=== PATIENT | female | born 1950 | race Caucasian/White ===

== ENCOUNTER → 2016-05-13 | Outpatient (CLI) | payer MEDICARE, OTHER ==
--- NOTE | 2016-05-13 17:17 | ECHO ---
DATE OF PROCEDURE: 05/13/2016 REFERRING PHYSICIAN: Hallie Chavis INDICATION: Chemotherapy on an outpatient basis. HEIGHT: 160 cm WEIGHT: 66 kg DIMENSIONS: IVS: 0.9 LV: 4.4 LVPW: 0.9 LA: 3.3 Aorta: 3.0 FINDINGS: Study was of good technical quality. Of note, the patient was quite tachycardic, sinus tachycardia with heart rate fluctuating between 105 and 120 beats per minute. Left ventricle is of normal size and systolic function with estimated ejection fraction (EF) around 65%. Right ventricle is also normal size and systolic function. Both atria appear normal. Left atrial volume index was 24 mm per meter square. Aortic valve is minimally sclerotic but has normal mobility. Mitral tricuspid valve appear normal. Pulmonic valve was not well visualized. No pericardial effusion is noted. Inferior vena cava is normal size. Aortic root and aortic arch appear normal. Abdominal aorta was not well seen. Doppler interrogation reveals no aortic stenosis and trivial aortic insufficiency. There is also trace mitral insufficiency and trace tricuspid insufficiency. Calculated pulmonary artery pressure is around 30 which would be borderline for mild pulmonary hypertension. Mitral inflow pattern and tissue Doppler imaging of mitral annulus reveal summation pattern on mitral inflow, but tissue Doppler velocity are normal (E prime septal is 13.7, E prime lateral 10.2 cm/sec). And consequently I assume there is normal diastolic function. CONCLUSIONS: 1. Study is of acceptable technical quality. 2. Normal left ventricle (LV) size, systolic and diastolic function. 3. No hemodynamically significant valvular disease. 4. Normal central venous pressure. 5. Normal mildly elevated pulmonary artery pressure. COMMENT: Subacute bacterial endocarditis (SBE) prophylaxis is not recommended. Of note, the patient was tachycardic during the study. [facility]
== END ==
LOC: M CARPUL 09:14
PROVIDERS: ATTEND Internal Medicine Medical Oncology
DX: C50.919 Malignant neoplasm of unspecified site of unspecified female breast (principal); Z79.899 Other long term (current) drug therapy

== ENCOUNTER → 2016-06-09 | Outpatient (CLI) | payer MEDICARE, OTHER ==
--- NOTE | 2016-06-10 08:31 | RADONC ---
RADIATION ONCOLOGY CONSULTATION NOTE: DATE: 06/09/2016 CHART NO: [id number] DIAGNOSIS: Right breast cancer. STAGE: Stage III A, T3N1M0 DIAGNOSIS Left breast cancer. STAGE: II B, T2N1M0 ECOG PERFORMANCE STATUS: 0. Ms. 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 HISTORY OF PRESENT ILLNESS: The patient was in the usual state of health until the fall when she noticed some dimpling over her right breast. She was found, at that time, to have bilateral breast masses and on December 05, 2015, underwent bilateral mastectomies, sentinel lymph node biopsies and bilateral axillary dissections. On the right side, the patient was found to have a 6.4 cm poorly differentiated infiltrating ductal carcinoma. The deep margin of resection was positive for malignancy which went into the pectoralis muscle. A total of 19 lymph nodes were sampled of which two were positive. The largest lymph node measured 3 cm. Extranodal extension was seen. On the left side, a 4.1 cm poorly differentiated infiltrating ductal carcinoma was found. The closest margin of resection was 6 mm. A total of two axillary lymph nodes on the left side were found to have metastatic disease; One measuring 5 mm and the other with metastatic disease measuring 2.5 mm. There was no extracapsular extension noted. An additional 13 lymph nodes for a total of 15 lymph nodes were removed from the left axilla. Following bilateral mastectomy the patient underwent systemic therapy with docetaxel/carboplatin /trastuzumab/pertuzumab (TCHP) every 21 days. Her last scheduled chemotherapy is for June 11, 2016. She is now presenting for discussion of postoperative radiation therapy at least to the right chest wall. PAST MEDICAL HISTORY: The patient's past medical history is positive for arthritis in her knees. She had a tonsillectomy as a child. ALLERGIES: The patient has no known drug allergies. SOCIAL HISTORY: The patient does not smoke cigarettes nor abuse alcohol. FAMILY HISTORY: The patient's family history is negative for breast cancer or other malignancies. REVIEW OF SYSTEMS: The patient's review of systems is positive for her physical limitations secondary to arthritis in her knees. She also has had some anorexia and weight loss since chemotherapy. She denies nausea, vomiting, fevers, chills, night sweats, diplopia, headaches, anxiety or depression, anorexia, weight loss, visual disturbances, chest pain, urinary or bowel difficulties, bone pain, or neurological problems. PHYSICAL EXAMINATION: The patient is a well-developed, well-nourished female in no acute distress. HEENT exam is normocephalic, atraumatic. Extraocular movements are intact. There is no palpable cervical, supraclavicular, infraclavicular, axillary, or inguinal lymphadenopathy present. Lungs are clear to auscultation and percussion. Heart has a regular rate and rhythm. Abdomen is benign with no hepatosplenomegaly, masses, or tenderness. Breast examination: The bilateral chest seo reveal no evidence of nodularity, ulceration or residual disease. Skeletal examination reveals no tenderness to pressure or percussion of the bony skeleton. Extremities reveal no clubbing, cyanosis, or edema. Neurologic exam is grossly intact, as is the remainder of the physical examination. ASSESSMENT: I had a very lengthy discussion with this patient and we discussed the NCCN guidelines for various treatment options. I discussed in detail the potential benefits as well as possible acute and chronic sequelae of external beam radiation therapy. We discussed logistics of treatment planning, simulation and subsequent fractionated daily radiation treatments. Clearly, with regards to the patient's right chest wall and axilla there is a clear indication for postoperative radiation therapy. Not only was the size of her lesion 6.4 cm, there was also involvement of the pectoralis muscle and a clearly positive margin of resection for that chest wall. In addition, metastatic lymph nodes on the right side measured up to 3 cm and there was clear evidence of extranodal extension as well. Therefore, clearly she is a candidate for postoperative radiation therapy to the right chest wall and supraclavicular lymph node drainage sites. I discussed in detail the indications for this , the reasoning and logic behind it, as well as the logistics of treatment planning, simulation and subsequent fractionated daily radiation treatments. I initially explained to the patient that I do not feel strongly about any postoperative radiation therapy to her left chest wall. The tumor in that case was only 4.1 cm and all margins of resection were negative. There were, however , two positive lymph nodes present and although small, they were present. A total of 13 further axillary lymph node showed no evidence of malignancy. When reviewing the NCCN most recent guidelines, however, it was noted that in patients with one to three positive axillary nodes, they recommend strongly consideration of radiation to the chest wall, infraclavicular region, supraclavicular region and perhaps even the internal mammary nodes. I have placed the patient on our discussion for multidisciplinary tumor conference to discuss this issue. In addition, we will be setting her up for CT simulation in treatment position for the right side and at the same time, the CT will be undertaken for treatment planning for the left side. We can, at that time, determine whether or not radiation would increase the risk of any heart issues. There is also an increased risk of lymphedema since 15 lymph nodes have already been removed from the left side. Considering that these were millimeter-sized lymph nodes and the tumor was largely removed, I think the data is less strong for radiation to the left side. Once again I think it is an option and we will further pursue this. In summary, we are setting the patient up for initiation of treatment planning for her right chest wall and lymph nodes drainage areas. There is clear and unequivocal indication for treatment of that side. At the same time, we will undergo planning to see whether or not the left side has significant morbidity especially with regards to the patient's heart. I have once again, as mentioned above, placed her for multidisciplinary tumor conference and we will discuss this further. Final recommendations will be made to her pending discussion at tumor conference. Once again that discussion will also need to further clarify any risks of treating the left side. As noted above, this patient has significant amount of disease and I think the likelihood of recurrence of the left chest wall is much less than on the right. Thank you for allowing us to participate in the care of this very pleasant woman. I will keep you informed as any discussion changes as they occur. As always warm regards, cc: Hallie Chavis MD *Nickie Church DO *MD CODY Parker
== END ==
LOC: M ONCR 08:38
PROVIDERS: ATTEND Radiology Radiation Oncology
DX: C50.919 Malignant neoplasm of unspecified site of unspecified female breast (principal); Z79.899 Other long term (current) drug therapy

== ENCOUNTER 2016-06-22 13:56 | Outpatient (RCR) | payer MEDICARE, OTHER ==
--- NOTE | 2016-06-22 15:25 | RADONC ---
RADIATION ONCOLOGY SIMULATION NOTE DATE: 06/22/2016 CHART NUMBER: Ms. Vernon was taken to the CT scan for CT simulation of her right breast field and supraclavicular region. As we were simulating that we also simulated the left chest wall field. The patient is concerned and wishes us to consider radiation to the left chest wall and axilla as well. CT was accomplished without difficulty or discomfort. We placed markers so that one or both chest seo could be treated. An immobilization device was created without difficulty or discomfort and will be used throughout the course of treatment. I was physically present throughout the course of CT simulation.
--- NOTE | 2016-07-06 12:05 | RADONC ---
RADIATION ONCOLOGY PROGRESS NOTE DATE: 07/06/2016 CHART NUMBER: Ms. Vernon was scheduled to initiate radiation today. She came in with many questions regarding treatment of the left side. We sat and spoke with her for well over 20 minutes or so discussing the pluses and minuses of treating that side. We did run a treatment plan and were able to come off the heart and minimize the dose to the axillary region. I did make clear to her that in light of the fact that there only two positive lymph nodes, one measuring 2.5 mm in the other measuring 5 mm that I did not think radiation was strongly indicated. I reiterated that we presented this at our multidisciplinary tumor conference and they agreed that it may be rogers to withhold radiation to the left side at this point. In addition, the patient was seen by Dr. Pedroza, her surgeon, who also agreed that radiation on the left side is not strongly indicated, but optional. I printed out once again the guidelines of the NCCN and at the end of our discussion, the patient decided to wait on radiation. We have already run a plan and simulated her for bilateral treatments. Once again, we are planning on starting the right side today and indeed may only treat the right side. I have made clear to the patient that it depends on her anxiety level. The plan shows minimal dose to the heart and should be tolerated if she so chooses. Once again, I do not believe radiation to the left side is strongly indicated. I think she should do fine without it, and therefore, I agree with Dr. Pedroza, as well as with the recommendations from our multidisciplinary tumor conference.
--- NOTE | 2016-07-13 11:24 | RADONC ---
RADIATION ONCOLOGY PROGRESS NOTE DATE: 07/13/2016 CHART NUMBER: [id number] Ms. Vernon is presently at a dose of 1080 cGy to her right chest wall and supraclavicular region and is tolerating treatments quite well at this point with no complaints related to her radiation therapy. She is having no breast or bone pain. The patient's review of systems is noncontributory. She denies nausea, vomiting, fevers, chills, night sweats, diplopia, headaches, anxiety or depression, anorexia, weight loss, visual disturbances, chest pain, urinary or bowel difficulties, bone pain, or neurological problems. PHYSICAL EXAMINATION: The patient's skin is in good condition with no evidence of moist or dry desquamation. The remainder of physical exam remains unchanged. Ms. Vernon is tolerating treatments quite well and radiation will continue as scheduled.
--- NOTE | 2016-07-21 10:46 | RADONC ---
RADIATION ONCOLOGY PROGRESS NOTE: DATE: 07/21/2016 CHART NO: Ms. Vernon is presently at a dose of 1980 cGy to her left chest wall and is tolerating treatments quite well at this point with no complaints related to her radiation therapy. She is having no significant skin pain or other problems. REVIEW OF SYSTEMS: The patient's review of systems is noncontributory. She denies nausea, vomiting, fevers, chills, night sweats, diplopia, headaches, anxiety or depression, anorexia, weight loss, visual disturbances, chest pain, urinary or bowel difficulties, bone pain, or neurological problems. PHYSICAL EXAMINATION: The patient's skin is in excellent condition with no evidence of radiation change present. There is no moist or dry desquamation. The remainder of her physical exam remains unchanged. Ms. Vernon is tolerating treatments quite well and radiation will continue as scheduled.
== END 2016-07-22 ==
LOC: M ONCR 13:56
PROVIDERS: ATTEND Radiology Radiation Oncology
DX: C50.111 Malignant neoplasm of central portion of right female breast (principal); C50.811 Malignant neoplasm of overlapping sites of right female breast

== ENCOUNTER → 2016-06-22 | Outpatient (CLI) | payer MEDICARE, OTHER | LOC: M RAD 13:45 | PROVIDERS: ATTEND Radiology Radiation Oncology | DX: C50.111 Malignant neoplasm of central portion of right female breast (principal); C50.811 Malignant neoplasm of overlapping sites of right female breast ==

== ENCOUNTER 2016-07-23 11:00 | Outpatient (RCR) | payer MEDICARE, OTHER ==
--- NOTE | 2016-07-28 13:42 | RADONC ---
RADIATION ONCOLOGY PROGRESS NOTE: DATE: 07/28/2016 CHART NO: [id number] Ms. Vernon is presently at a dose of 2880 cGy to her right chest wall and is tolerating treatments quite well at this point with no complaints related to her radiation therapy. She has no skin discomfort or other problems. REVIEW OF SYSTEMS: The patient's review of systems is noncontributory. Denies nausea, vomiting, fevers, chills, night sweats, diplopia, headaches, anxiety or depression, anorexia, weight loss, visual disturbances, chest pain, urinary or bowel difficulties, bone pain, or neurological problems. PHYSICAL EXAMINATION: The patient's skin is in good condition with just some erythema present. There is no moist or dry desquamation. The remainder of her physical exam remains unchanged. Ms. Vernon is tolerating treatments quite well and radiation will continue as scheduled.
--- NOTE | 2016-08-03 11:37 | RADONC ---
RADIATION ONCOLOGY PROGRESS NOTE: DATE: 08/03/2016 CHART NUMBER: [id number]. PROGRESS NOTE: Ms. Vernon is presently a dose of 3600 cGy to her left chest wall and is tolerating treatments quite well at this point with no complaints related to her radiation therapy. She has no chest wall or other discomforts. REVIEW OF SYSTEMS: The patient's review of systems is noncontributory. Denies nausea, vomiting, fevers, chills, night sweats, diplopia, headaches, anxiety or depression, anorexia, weight loss, visual disturbances, chest pain, urinary or bowel difficulties, bone pain, or neurological problems. PHYSICAL EXAMINATION: The patient's skin is in good condition with no evidence of moist or dry desquamation. The remainder of her physical exam remains unchanged. Ms. Vernon is tolerating treatments quite well and radiation will continue as scheduled.
[2016-08-10] MEDS ORDERED: SILV-4 TOP (10:10)
--- NOTE | 2016-08-10 15:01 | RADONC ---
RADIATION ONCOLOGY DATE: 08/10/2016 CHART NUMBER: [id number] Ms. Vernon is presently at a dose of 4320 cGy to her left chest wall and is tolerating treatments quite well at this point with no significant difficulties related to her radiation therapy other than some skin tenderness. REVIEW OF SYSTEMS: The patient's review of systems is positive for some skin tenderness but is otherwise noncontributory. She denies nausea, vomiting, fevers, chills, night sweats, diplopia, headaches, anxiety or depression, anorexia, weight loss, visual disturbances, chest pain, urinary or bowel difficulties, bone pain, or neurological problems. PHYSICAL EXAMINATION: The patient's skin shows some erythema and tanning present but there is no evidence of moist or dry desquamation. The remained of the physical exam remains unchanged. ASSESSMENT: The patient is clinically doing quite well at this point and radiation will continue as scheduled. I have given the patient a prescription for some Silvadene to be applied topically. MTDD
--- NOTE | 2016-08-11 10:33 | RADONC ---
RADIATION ONCOLOGY SIMULATION NOTE: DATE: 08/11/2016 CHART NUMBER: [id number]. SIMULATION NOTE: Ms. Vernon was taken to the linear accelerator today for clinical setup of her right scar electron boost. Setup was accomplished without difficulty or discomfort. Radiation treatment planning is underway and radiation treatments will begin subsequently. An immobilization device was created and will be used throughout the course of treatment. I was physically present throughout the course of CT simulation.
--- NOTE | 2016-08-17 12:15 | RADONC ---
RADIATION ONCOLOGY PROGRESS NOTE: DATE: 08/17/2016 CHART NUMBER: [id number]. PROGRESS NOTE: Ms. Vernon is presently a dose of 5220 cGy to her coned-down boost and is tolerating treatments quite well at this point with no significant difficulties related to her radiation therapy other than a brisk skin reaction. She is having no other pain or discomfort. REVIEW OF SYSTEMS: The patient's review of systems is positive for some skin, chest wall pain but is otherwise noncontributory. Denies nausea, vomiting, fevers, chills, night sweats, diplopia, headaches, anxiety or depression, anorexia, weight loss, visual disturbances, chest pain, urinary or bowel difficulties, bone pain, or neurological problems. PHYSICAL EXAMINATION: The patient's skin shows moist and dry desquamation as well as tanning and erythema. The remainder of physical exam remains unchanged. Ms. Vernon is tolerating treatments well. The areas of desquamation are not in the presently treated coned-down sections so radiation will continue as scheduled.
--- NOTE | 2016-08-21 11:24 | RADONC ---
RADIATION ONCOLOGY TREATMENT SUMMARY: DATE: 08/21/2016 CHART NUMBER: [id number] DIAGNOSIS: Right breast cancer. STAGE: III A, T3N1M0 DIAGNOSIS: Left breast cancer. STAGE: II B, T2N1M0 ECOG PERFORMANCE STATUS: 0 Ms. 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 We treated the patient to the right chest wall and supraclavicular regions for a dose of 5040 cGy delivered in 28 fractions of 180 cGy each over 39 elapsed days from 07/06/2016 through 08/14/2016. The patient's right chest wall and lymph node drainage sites were treated on the linear accelerator utilizing a combination of 6X and 18X photon beams. The right chest wall was treated utilizing medial and lateral tangential islas. 0.5 cm of tissue equivalent bolus was placed over the field. The right supraclavicular region and axillary area was treated using a combination of left anterior oblique and posterior islas again using a combination of 6X 18X photons. Following completion of 5040 cGy to the entire right chest wall, the scar was boosted for an additional 900 cGy delivered in five fractions of 180 cGy each from 2016 through 08/21/2016. The scar boost was treated on the linear accelerator utilizing a 9 MEV electron beam prescribed to the 90% isodose line via an en face technique. This brought the surgical scar area to dose of 5940 cGy delivered in 33 fractions over 46 elapsed days from 07/06/2016 through 08/21/2016. Ms. Vernon tolerated her treatments quite well and was able complete therapy as prescribed without interruption. I have scheduled the patient see me again in 1 month for further followup. She will also continue be followed by her other physicians as well. cc: MD Nickie Beverly DO Joel Yellin, MD MTDD
== END 2016-08-21 ==
LOC: M ONCR 11:00
PROVIDERS: ATTEND Radiology Radiation Oncology
DX: C50.112 Malignant neoplasm of central portion of left female breast (principal); C50.111 Malignant neoplasm of central portion of right female breast

== ENCOUNTER → 2016-07-28 | Outpatient (CLI) | payer MEDICARE, OTHER ==
--- NOTE | 2016-07-28 23:03 | ECHO ---
DATE OF PROCEDURE: 07/28/2016 AGE: 66 GENDER: Female HEIGHT: 63 inches WEIGHT: 137 pounds BODY SURFACE AREA: 1.65 m2 PATIENT LOCATION: Outpatient REFERRING PHYSICIAN: Leyla Travis NP INDICATION: Potentially cardiotoxic chemotherapy. 2-D MEASUREMENTS: RV: 3.3 cm LV: 3.6 cm Septum: 1.0 cm Posterior wall: 1.0 cm Aortic root: 2.9 cm LA: 3.4 cm LVEF: 65% DOPPLER MEASUREMENTS AV: 1.5 m/s LVOT: 1.2 m/s LVOT diameter: 1.5 cm MV-E: 81, A: 100, EA ratio: 0.8 Early mitral deceleration time: 180 ms E prime: 8, A prime: 8, EE prime ratio: 10 PV: 0.8 m/s Pulmonary artery acceleration time: 106 ms RVSP: 27-31 mmHg IVC: 1.2 cm COMMENTS: Normal sinus rhythm without intraventricular conduction disturbance. Normal cardiac chamber sizes and wall thickness. On real-time imaging from the parasternal and apical projections wall motion was symmetrical and normal to hyperkinetic. Slightly thickened mitral annulus with normal leaflet thickness and excursion with no posterior systolic buckling. Three equal sized aortic cusps with marginally thickened cusp edges but adequate cusp separation. Normal aortic root size. No apparent intracardiac mass or pericardial effusion. Color flow Doppler study taken from the parasternal and apical projections showed very mild mitral and aortic insufficiency with mild tricuspid insufficiency. Guided continuous wave Doppler of her aortic valve showed a normal peak systolic velocity against LV outflow tract obstruction. Pulsed and continuous wave Doppler of her LV inflow tract taken from the apical four-chamber projection showed normal diastolic filling velocities against mitral stenosis. There was a slightly more prominent late diastolic/atrial dependent filling pattern but no other signs of LV diastolic dysfunction and estimated mean left atrial pressure was within normal limits. Pulsed and continuous wave Doppler of her pulmonary trunk showed a normal peak systolic velocity against RV outflow tract obstruction. Pulmonary artery acceleration time was marginally abbreviated suggestive a borderline increased pulmonary vascular resistance. Guided continuous wave Doppler of her tricuspid valve allowed our further estimation of her right ventricular systolic pressure (upper limits of normal to borderline increased). Normal IVC size and collapse against an elevated central venous pressure. CONCLUSIONS: Normal left ventricular size, wall thickness and wall motion. Normal left atrial size with Doppler evidence of a degree of impaired LV diastolic function in keeping with her age. Normal right heart chamber sizes and wall motion with borderline pulmonary hypertension. Normal IVC size and collapse against an elevated central venous pressure. Subtle aortic valvular sclerosis without stenosis and very mild insufficiency. Subtle mitral annular calcification with very mild insufficiency. Comparing the above test findings with prior study May 13, 2016 there did not appear to be a significant change.
== END ==
LOC: M CARPUL 10:10
PROVIDERS: ATTEND Nurse Practitioner Family
DX: C50.919 Malignant neoplasm of unspecified site of unspecified female breast (principal); Z79.899 Other long term (current) drug therapy

== ENCOUNTER → 2016-09-03 | Outpatient (CLI) | payer MEDICARE, OTHER ==
[~2016-09-03] MED LIST: SILV-4 TOP
--- NOTE | 2016-09-09 09:49 | DEXA ---
AP SPINE L1 - L4 0.853 -2.8 -1.1 LT FEMUR TOTAL 0.692 -2.5 -1.2 RT FEMUR TOTAL Unsure of ESTHER placement. TOTAL BODY TOTAL OTHER DUAL FEMUR FRAX* ASSESSMENT Risk factors: History of adult fracture. 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 FOLLOW-UP: Recommendation for the next bone density exam: 2 years. [facility]
== END ==
LOC: M WHC 12:50
PROVIDERS: ATTEND Internal Medicine Medical Oncology
DX: M81.0 Age-related osteoporosis without current pathological fracture (principal)

== ENCOUNTER → 2016-09-23 | Outpatient (CLI) | payer MEDICARE, OTHER ==
--- NOTE | 2016-09-23 10:49 | RADONC ---
RADIATION ONCOLOGY FOLLOWUP NOTE: DATE: 09/23/2016 CHART NUMBER: [id number]. DIAGNOSIS: Right breast cancer. STAGE: IIIA, T3N1M0 DIAGNOSIS: Left breast cancer. STAGE: IIB, T2N1M0. ECOG PERFORMANCE STATUS: Zero. FOLLOWUP NOTE: Ms. 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 The patient presents today reporting that she is doing quite well with no complaints at this time related to her radiation therapy or disease. She has no chest wall or bone pain. REVIEW OF SYSTEMS: The patient's review of systems is noncontributory. Denies nausea, vomiting, fevers, chills, night sweats, diplopia, headaches, anxiety or depression, anorexia, weight loss, visual disturbances, chest pain, urinary or bowel difficulties, bone pain, or neurological problems. PHYSICAL EXAMINATION: The patient is a well-developed, well-nourished, white female, in no acute distress. HEENT exam is normocephalic, atraumatic. Extraocular movements are intact. There is no palpable cervical, supraclavicular, infraclavicular, axillary, or inguinal lymphadenopathy present. Lungs are clear to auscultation and percussion. Heart has a regular rate and rhythm. Abdomen is benign with no hepatosplenomegaly, masses, or tenderness. Breast examination reveals The patient's bilateral chest seo reveal well- healed mastectomy scars present. There is no nodularity, ulceration or evidence of residual or recurrent disease present. Skeletal examination reveals no tenderness to pressure or percussion of the bony skeleton. Extremities reveal no clubbing, cyanosis, or edema. Neurologic exam is grossly intact, as is the remainder of the physical examination. ASSESSMENT: The patient is clinically doing well at this point. She is undergoing Herceptin treatment and will be seen by Dr. Chavis routinely over the next several months. She is also going to continue her followup with Dr. Pedroza. In light of this close followup and management at this time, I have discharged her from our followup except on an as needed basis. Of note, once again, the patient is questioned whether or not she should reconsider radiation to the left breast. She is asked that question almost on a daily basis throughout the course of treatment. We had simulated the patient to the left breast and I had given her this option throughout her treatment course. Again she brought this up routinely. I routinely gave her the option and explained the potential benefits as well as risks to her. At this time, we are now significantly post surgery. Once again, I made clear she had had the option to treat that breast at anytime. At this point, however , I do not foresee it being of any benefit. Once again, I explained to her in detail the risks of radiation to that side and the small likelihood of any real benefit. cc: MD Nickie Beverly DO Joel Yellin, MD MTDD
== END ==
LOC: M ONCR 10:04
PROVIDERS: ATTEND Radiology Radiation Oncology
DX: C50.911 Malignant neoplasm of unspecified site of right female breast (principal); C50.912 Malignant neoplasm of unspecified site of left female breast

== ENCOUNTER → 2016-10-27 | Outpatient (CLI) | payer MEDICARE, OTHER ==
--- NOTE | 2016-10-27 20:47 | ECHO ---
DATE OF PROCEDURE: 10/27/2016 REFERRING PHYSICIAN: Dr. Hallie Chavis Study was performed on 10/27/2016 on an outpatient basis for indication chemotherapy. The patient measures 160 cm and weighs 61 kg. DIMENSIONS: IVS: 0.9 LV: 3.3 LVPW: 0.9 LA: 2.8 Aorta: 2.9 FINDINGS: The study is of fair technical quality. Left ventricle is normal size and systolic function with estimated left ventricular ejection fraction (LVEF) 65-70%. Right ventricle also appears normal. Both atria appear normal. All four cardiac valves were reasonably well seen and appear normal. No pericardial effusion is present. Inferior vena cava was not visualized. Aortic root and aortic arch appear normal. Abdominal aorta was not seen. Doppler interrogation reveals no aortic stenosis and trivial insufficiency. There is trace mitral insufficiency and trace tricuspid insufficiency. Calculated pulmonary artery pressure is within normal limits. Pulmonic valve is functionally competent. Mitral inflow pattern and tissue Doppler imaging of mitral annulus reveal grade 1 diastolic dysfunction (E prime velocity of septal and lateral mitral annulus are 7.1 and 10.2 cm/s respectively). CONCLUSIONS: 1. The study is of fair technical quality. 2. Normal left ventricular (LV) size with normal LV systolic function and grade 1 diastolic dysfunction. 3. No significant valvular disease. 4. Unable to estimate central venous pressure but likely normal pulmonary artery pressure. COMMENTS: Subacute bacterial endocarditis (SBE) prophylaxis is not recommended.
== END ==
LOC: M CARPUL 09:22
PROVIDERS: ATTEND Internal Medicine Medical Oncology
DX: C50.919 Malignant neoplasm of unspecified site of unspecified female breast (principal); Z79.899 Other long term (current) drug therapy

== ENCOUNTER → 2016-11-26 | Outpatient (REF) | payer MEDICARE, OTHER ==
[2016-11-26 14:53] LABS: FREE T4 1.26 NG/DL (0.76-1.46)
== END ==
LOC: M LAB REF 12:44
PROVIDERS: ATTEND Physician Assistant
DX: Z00.00 Encounter for general adult medical examination without abnormal findings (principal); Z13.29 Encounter for screening for other suspected endocrine disorder; Z13.220 Encounter for screening for lipoid disorders; Z79.899 Other long term (current) drug therapy

== ENCOUNTER → 2017-02-05 | Outpatient (CLI) | payer MEDICARE, OTHER ==
--- NOTE | 2017-02-08 13:26 | ECHO ---
DATE OF STUDY: 02/05/2017 REFERRING PHYSICIAN: Hallie Chavis MD INDICATION: Chemotherapy drugs that may affect the heart. HEIGHT: 100 cm WEIGHT: 61 kg 2D MEASUREMENTS: Aortic annulus 1.7 cm Left atrium 3.3 cm Septum 0.67 cm Posterior wall 0.82 cm Left ventricle diastole 3.6 cm Inferior vena cava 1.4 cm DOPPLER MEASUREMENTS: Mild aortic regurgitation. Aortic valve velocity - 143 cm/s LVOT velocity - 112 cm/s LVOT VTI - 21.6 cm Very mild mitral regurgitation Mitral E velocity - 78.0 cm/s Mitral A velocity - 94.3 cm/s Mitral deceleration time - 201 ms Mild tricuspid regurgitation Estimated right ventricle systolic pressure 30 mmHg assuming an right atrial pressure of 5 mmHg MITRAL ANNULAR TISSUE DOPPLER: E-prime septal - 8.2 cm/s A-prime septal - 9.9 cm/s DESCRIPTION: Rhythm was sinus. Image quality was fair. No pericardial effusion. This was a 2D, M mode, color flow Doppler and pulse wave Doppler examination and included mitral annular calcification tissue Doppler. CONCLUSIONS: 1. Normal left ventricle internal dimensions and wall thickness. Normal regional LV wall motion and wall thickening. Normal LV systolic function. LVEF 70% by visual estimate. Normal LV diastolic function. 2. No pericardial effusion. 3. Mild aortic valve sclerosis on a three-cusp aortic valve. Mild aortic regurgitation. 4. Mild mitral annular calcification. Very mild mitral regurgitation. 5. Otherwise, normal appearing echocardiogram Doppler findings. MTDD
== END ==
LOC: M CARPUL 10:01
PROVIDERS: ATTEND Internal Medicine Medical Oncology
DX: C50.919 Malignant neoplasm of unspecified site of unspecified female breast (principal); Z79.899 Other long term (current) drug therapy

== ENCOUNTER → 2017-10-13 | Outpatient (REF) | payer MEDICARE, OTHER ==
[2017-10-13 11:16] LABS: ALBUMIN 3.5 GM/DL (3.2-5.2); ALBUMIN/GLOBULIN RATIO 0.97 (1.00-1.93); ALKALINE PHOSPHATASE 76 U/L (45-117); ALT/SGPT 29 U/L (12-78); ANION GAP 8 MEQ/L (8-16); AST/SGOT 14 U/L (7-37); BILIRUBIN,TOTAL 0.4 MG/DL (0.2-1.0); BLOOD UREA NITROGEN 18 MG/DL (7-18); CALCIUM LEVEL 9.4 MG/DL (8.8-10.2); CARBON DIOXIDE LEVEL 27 MEQ/L (21-32); CHLORIDE LEVEL 109 MEQ/L (98-107); CREATININE FOR GFR 0.82 MG/DL (0.55-1.30); GLOMERULAR FILTRATION RATE > 60.0 (>45); GLUCOSE, FASTING 132 MG/DL (70-100); SODIUM LEVEL 144 MEQ/L (136-145); TOTAL PROTEIN 7.1 GM/DL (6.4-8.2)
== END ==
LOC: M LAB REF 10:51
DX: C50.111 Malignant neoplasm of central portion of right female breast (principal); Z17.0 Estrogen receptor positive status [ER+]; Z90.11 Acquired absence of right breast and nipple; C50.112 Malignant neoplasm of central portion of left female breast; Z90.12 Acquired absence of left breast and nipple
CPT/HCPCS: 80053

== ENCOUNTER → 2018-08-30 | Outpatient (CLI) | payer MEDICARE, OTHER ==
[~2018-08-30] MED LIST changes: +CEPH500C PO; +DOXY-350 PO; +EXEM25TA PO; +IMOD2TAB16 PO; +NERL40TA PO; +[UNRECOGNIZED DRUG - CODE] PO
[2018-08-30 18:45] LABS: RHEUMATOID FACTOR QUANT < 10.0 IU/ML (<15.0)
[2018-08-30 18:49] LABS: BASO # 0.1 10^3/uL (0.0-0.2); BASO % 0.9 % (0.0-1.0); EOS # 0.1 10^3/uL (0.0-0.50); EOS % 0.8 % (0.0-3.0); HEMATOCRIT 39.1 % (36.0-47.0); HEMOGLOBIN 12.8 g/dl (12.0-15.5); LYMPH # 1.5 10^3/uL (1.5-4.5); LYMPH % 19.7 % (24.0-44.0); MEAN CORPUSCULAR HEMOGLOBIN 30.6 pg (27.0-33.0); MEAN CORPUSCULAR HGB CONC 32.7 g/dl (32.0-36.5); MEAN CORPUSCULAR VOLUME 93.5 fl (80.0-96.0); MONO # 0.4 10^3/uL (0.0-0.8); MONO % 4.9 % (0.0-5.0); NEUTROPHILS # 5.6 10^3/uL (1.8-7.7); NEUTROPHILS % 71.3 % (36.0-66.0); PLATELET COUNT, AUTOMATED 366 10^3/uL (150-450); RED BLOOD COUNT 4.18 10^6/uL (4.00-5.40); WHITE BLOOD COUNT 7.8 10^3/uL (4.0-10.0)
[2018-08-30 19:21] LABS: ERYTHROCYTE SEDIMENTATION RATE 58 mm/hr (0-30)
[2018-09-02 14:09] LABS: ANA (HEP2) Negative (.); CYCLIC CITRULLINATED PEPTIDE 24 units (0-19); Lyme Disease IgG Ab 18 kDa Ban Absent (.); Lyme Disease IgG Ab 23 kDa Ban Present (.); Lyme Disease IgG Ab 28 kDa Ban Absent (.); Lyme Disease IgG Ab 30 kDa Ban Absent (.); Lyme Disease IgG Ab 39 kDa Ban Absent (.); Lyme Disease IgG Ab 41 kDa Ban Present (.); Lyme Disease IgG Ab 45 kDa Ban Absent (.); Lyme Disease IgG Ab 58 kDa Ban Absent (.); Lyme Disease IgG Ab 66 kDa Ban Absent (.); Lyme Disease IgG Ab 93 kDa Ban Absent (.); Lyme Disease IgG West Blot Int Negative (.); Lyme Disease IgG/IgM Antibodie 2.75 ISR (0.00-0.90); Lyme Disease IgM Ab 23 kDa Ban Present (.); Lyme Disease IgM Ab 39 kDa Ban Present (.); Lyme Disease IgM Ab 41 kDa Ban Present (.); Lyme Disease IgM Ab Quantitati 8.13 index (0.00-0.79); Lyme Disease IgM West Blot Int Positive (.)
== END ==
LOC: M SMT 13:05
PROVIDERS: ATTEND Physician Assistant
DX: R21 Rash and other nonspecific skin eruption (principal); M25.531 Pain in right wrist

== ENCOUNTER → 2018-09-27 | Outpatient (CLI) | payer MEDICARE, OTHER ==
[~2018-09-27] MED LIST changes: +BUPIVACAINE HCL 0.5% 10 ML VIAL As Ordered ONE; +LIDOCAINE 2% MDV 20 ML VIAL As Ordered ONE; +diphenhydrAMINE INJ 50MG/ML VIAL (J1200) As Ordered ONE
[2018-09-27 10:01] VITALS: BP 162/79
--- NOTE | 2018-09-27 10:26 | ROOPDOC ---
[facility] Report Of Operation Report of Operation DATE OF PROCEDURE: 09/27/2018 PREPROCEDURE DIAGNOSES: Breast cancer, status post right internal jugular vein tunneled central venous catheter with subcutaneous port.. POSTPROCEDURE DIAGNOSES: Breast cancer, status post right internal jugular vein tunneled central venous catheter with subcutaneous tinnitus port. PROCEDURE: Right internal jugular vein tunneled central venous catheter with subcutaneous port removal. SURGEON: Dr. Yenni Voss M.D. SOFTWARE QUALITY ASSURANCE ENGINEER: Jb INDICATION: Patient is a 68-year-old female who underwent placement of a right internal jugular vein tunneled central venous catheter with subcutaneous port for access for chemotherapy secondary to breast cancer. Patient now no longer requires the tunneled central venous catheter with subcutaneous port and will undergo removal of the right internal jugular vein tunneled central venous catheter with subcutaneous port. The procedure was described and explained to the patient in detail including drawing of pictures demonstrating the procedure and anatomy. Risks, benefits and alternative treatment options were discussed with the patient. Benefits included but were not limited to removal of the port and central venous catheter reducing the risks of infection and complications from central venous catheter placement. Alternative treatment options included but were not limited to no intervention. Risks included but were not limited to infection, bleeding, renal failure requiring hemodialysis, pneumothorax, hemothorax, nerve injury, scarring, bruising, possible need for transfusion of blood products, anesthetic complications, allergic reaction or complication from material used for prepping and draping, cerebrovascular accident, myocardial infarction, pulmonary embolus, deep venous thrombosis, loss of limb, loss of life, poor satisfaction and poor outcome. Risks of not performing the procedure included but were not limited to infection central venous stenosis and/or occlusion, possible . Patient's questions were answered. Patient voices understanding of these risks, benefits and alternative treatment options. Patient voices acceptance of the risks associated with removal of the central venous catheter with subcutaneous port and consents to proceed. There were no guarantees or promises made to the patient regarding the outcome and/or the res ults of the procedure. ANESTHESIA: Local with 10 cc of 2% lidocaine mixed with 0.5% Marcaine. ESTIMATED BLOOD LOSS: 5 mL. IV FLUID: 25 mL. DRAINS: None SPECIMENS: None CONTRAST: None COMPLICATIONS: None IMPLANTS: None PROCEDURE: Patient was prepped and draped in a standard surgical fashion. A time out was completed by myself, and all the team members in the room involved at the initiation of the procedure, confirming the correct patient , procedure and laterality. The skin and subcutaneous tissue overlying the catheter and subcutaneous port were then anesthetized with 2% lidocaine mixed with 0.5% Marcaine. An incision was made through the previous incision used for the initial insertion of the tunneled central venous catheter with subcutaneous port insertion. The incision was carried down through the skin and subcutaneous tissue using a scalpel. The port was sharply dissected free using the scalpel and Metzenbaum scissors. The port and the catheter were then removed. A 4-0 Monocryl was used to approximate the subcutaneous tissue at the catheter tunnel site. The skin was then approximated using 4-0 Monocryl in inverted interrupted fashion. Once hemostasis was achieved, dressings were then applied. Patient tolerated the procedure well. All instrument, sponge and needle counts were correct at the end of the case. There were no complications. Dr. Voss was present for directed entire case. Patient was transferred to the recovery area and subsequently discharged in stable condition. The description and results of the procedure were discussed with the patient in the postprocedure holding area with all questions being answered. Stefan Voss MD Sep 27, 2018 10:26
== END ==
LOC: M IRPRO 09:15
PROVIDERS: ATTEND Internal Medicine Medical Oncology
DX: C50.919 Malignant neoplasm of unspecified site of unspecified female breast (principal); M81.0 Age-related osteoporosis without current pathological fracture

== ENCOUNTER → 2018-09-30 | Outpatient (CLI) | payer MEDICARE, OTHER ==
[~2018-09-30] MED LIST changes: -BUPIVACAINE HCL 0.5% 10 ML VIAL As Ordered ONE; -LIDOCAINE 2% MDV 20 ML VIAL As Ordered ONE; -diphenhydrAMINE INJ 50MG/ML VIAL (J1200) As Ordered ONE
--- NOTE | 2018-10-07 11:49 | DEXA ---
AP SPINE L1 - L4 0.924 -2.2 -0.5 LT FEMUR TOTAL 0.726 -2.2 -0.8 LT NECK 0.714 -2.3 -0.6 RT FEMUR TOTAL 0.524 -3.8 -2.4 RT NECK 0.603 -3.1 -1.4 TOTAL BODY TOTAL OTHER COMMENTS: There is low bone density of the spine. There is low bone density of the left hip. There is osteoporosis of the right hip. Lumbar scoliosis advanced arthritis right hip. The density of the spine has increased 8.3% since the initial exam on 09/03/2006. The spine density has decreased 1.7% since the most recent exam on 10/18/2017. The density of the left hip has increased 4.9% since the initial exam on 09/03/2006. The density of the left hip has increased 3.3% since the most recent exam on 10/18/2017. The density of the right hip has increased 6.5% since the initial exam on 09/03/2006. The density of the right hip has decreased 9.8% since the most recent exam on 10/18/2017. FOLLOW-UP: Recommendation for the next bone density exam: 2 years. CODY
== END ==
LOC: M WHC 09:47
PROVIDERS: ATTEND Internal Medicine Medical Oncology
DX: M81.0 Age-related osteoporosis without current pathological fracture (principal)

== ENCOUNTER → 2019-03-03 | Outpatient (CLI) | payer MEDICARE, OTHER ==
--- NOTE | 2019-03-03 15:24 | REP ---
WHOLE BODY RADIONUCLIDE BONE SCAN: HISTORY: High risk stage III breast carcinoma. Comparison bone scan January 24, 2016. Progressive left hip pain. Breast cancer diagnosed in 2016 TECHNIQUE: 21.8 mCi technetium 99m MDP is injected and standard whole body bone scan imaging was acquired. SCINTIGRAPHIC FINDINGS: There is scintigraphic uptake in bilateral kidneys and in the urinary bladder. There is an arthritic distribution pattern involving cervical spine facets bilaterally, the wrists and shoulders bilaterally, the left knee, and bilateral hips where there is fairly advanced arthritic uptake. There is shortening of the right leg and superior subluxation of the right hip is suggested. These findings are unchanged except that the cervical spine facet joint uptake is more extensive than on the 2016 study. There is a focus of increased uptake at the thoracolumbar spine junction at what appears to be the L1 level consistent with a compression deformity at this level. This may reflect degenerative change. In any event, it was present previously and is slightly more prominent. There is facet joint degenerative uptake in the facets of the lower lumbar spine. There is some activity in a linear fashion at the perineum consistent with urine contamination. There is no compelling evidence of skeletal metastatic disease. IMPRESSION: Osteoarthritic pattern of uptake in the cervical spine, lumbar spine, hips wrists and shoulders.. Findings are similar to the prior study. There is not appear to be evidence of skeletal metastatic disease. Electronically Signed by Kyle Lucero MD 03/04/2019 05:20 A
== END ==
LOC: M RAD 09:41
PROVIDERS: ATTEND Internal Medicine Medical Oncology
DX: C50.519 Malignant neoplasm of lower-outer quadrant of unspecified female breast (principal)
CPT/HCPCS: 78306; A9503

== ENCOUNTER → 2019-03-06 | Outpatient (CLI) | payer MEDICARE, OTHER ==
[~2019-03-06] MED LIST changes: +GASTROGRAFIN SOLUTION 30ML (Q9963) As Ordered ONE; +ISOVUE-370 76% 100ML VIAL (Q9967) As Ordered ONE
--- NOTE | 2019-03-07 07:44 | REP ---
CT CHEST WITH IV CONTRAST: HISTORY: High risk stage III breast cancer. Comparison is made with images obtained at the radiation treatment planning June 22, 2016. CT CONTRAST DOSE: 100 mL of intravenous Isovue [address] FINDINGS: The patient appears to be status post bilateral mastectomy. No chest wall mass is seen. Minimal fibrosis is noted along the pectoralis muscle on the right. This is improved. No hilar or mediastinal mass or adenopathy is observed. There are granulomatous lymph node calcific residuals in the right hilum and in the subcarinal region. These are unchanged. There is a granuloma with calcification in the right lower lobe also unchanged. There is no evidence of pleural effusion. Some mild subpleural fibrosis is seen in the right upper lobe anterolaterally post radiation. No significant pulmonary nodule is appreciated. There is some right apical pleuroparenchymal fibrosis which may be post radiation change as well. No pulmonary parenchymal nodule is appreciated. There is degenerative disc disease at what appears to be T12-L1 with reactive sclerosis on either side of the degenerated disc. No bony destructive lesion is seen. IMPRESSION: No evidence of mass, pleural disease, or adenopathy. No bony destructive lesion is seen. Electronically Signed by Kyle Lucero MD 03/07/2019 07:54 A
--- NOTE | 2019-03-07 07:46 | REP ---
CT ABDOMEN AND PELVIS WITH IV AND ORAL CONTRAST: HISTORY: High risk, stage III breast [address] CONTRAST DOSE: 100 mL of intravenous Isovue 370. Oral contrast also administered. CT FINDINGS: There is a granulomatous calcification in the right lung base. Normal adrenal glands are noted bilaterally. There is an accessory splenule medially adjacent to the spleen. A splenic granulomatous calcification is seen. No focal liver lesion is seen. There is a focal gas density within the lumen of the gallbladder consistent with cholelithiasis. No wall thickening is appreciated. There is no evidence of mass or cyst in the pancreas. The main pancreatic duct is slightly prominent at 4 mm. Common bile duct is normal in caliber at 4-5 mm. The kidneys enhance symmetrically and are morphologically intact except for a small cyst in the left kidney measuring 1.2 cm in diameter. There is another tiny cortical cyst in the left kidney. Focal cortical scarring is seen posteriorly on the right. No retroperitoneal mass or adenopathy is observed. Normal caliber aorta is seen. Small and large bowel loops are unremarkable. The uterus is tipped to the left. There are peripherally calcified lesions inseparable from the uterine serosal surface projecting to the right of midline which may be partially calcified degenerated fibroids or conceivably a right ovarian lesion. The overall dimensions for this process are 6.6 x 4.4 x 5.7 cm. There is some macroscopic fat in one component of this right adnexal or right uterine process. This implies an ovarian dermoid etiology. This process does not appear to be separable from the uterus however. Normal appendix is seen in the right lower pelvis. Small and large bowel loops are unremarkable. Bone window settings demonstrate advanced osteoarthritis of the right and left hips and some degenerative disc and facet changes in the spine. No bony destructive lesion is appreciated. IMPRESSION: 1. No evidence of intra-abdominal or skeletal metastatic disease. 2. Complex lesion in the pelvis not separable from the uterine fundus. Degenerated fibroid versus ovarian complex cystic lesion, possibly dermoid. Consider pelvic sonography or pelvic MRI scanning. Electronically Signed by Kyle Lucero MD 03/07/2019 07:55 A
== END ==
LOC: M RAD 13:47
PROVIDERS: ATTEND Internal Medicine Medical Oncology
DX: C50.919 Malignant neoplasm of unspecified site of unspecified female breast (principal)
CPT/HCPCS: 71260; 74177; Q9963; Q9967

== ENCOUNTER → 2019-03-30 | Outpatient (CLI) | payer MEDICARE, OTHER ==
[~2019-03-30] MED LIST changes: -GASTROGRAFIN SOLUTION 30ML (Q9963) As Ordered ONE; -ISOVUE-370 76% 100ML VIAL (Q9967) As Ordered ONE
--- NOTE | 2019-03-30 10:03 | REP ---
Pelvic ultrasound, transabdominal imaging for pelvic mass identified on recent CT: The bladder is adequately distended. The uterus is anteverted and anteflexed and measures 6.1 x 3.0 x 5.9 cm and is normal size. The endometrium is not thickened measuring 1.6 mm. The right ovary could not be identified. The left ovary could not be identified. The patient declined endovaginal imaging. There is a 4.4 x 3.9 x 5.3 hypoechoic area in the right adnexa. We are unable to determine if this is ovarian or uterine in origin. There is a hyperechoic area in the left adnexa measuring 2.8 x 2.2 x 3.6 cm, also unable to determine if this is ovarian or uterine. Impression: There is an hypoechoic area in the right adnexa and hyperechoic area in the left adnexa that cannot be further defined. We are unable to determine if these are of ovarian or uterine in origin on the basis of this ultrasound. I would recommend pelvic MRI for further evaluation to determine if there are pelvic masses. Electronically Signed by Luis Daniel Mcghee MD 03/30/2019 09:55 A
== END ==
LOC: M RAD 08:34
PROVIDERS: ATTEND Internal Medicine Medical Oncology
DX: C50.911 Malignant neoplasm of unspecified site of right female breast (principal)

== ENCOUNTER → 2019-04-10 | Outpatient (CLI) | payer MEDICARE, OTHER ==
[~2019-04-10] MED LIST changes: +PROHANCE 279.3MG/ML 15ML VIAL (A9576) As Ordered ONE
--- NOTE | 2019-04-11 08:33 | REP ---
MRI pelvis without and with IV gadolinium: History: Breast carcinoma. Right adnexal mass, left adnexal mass, rule out metastasis. Comparison CT study chest abdomen pelvis March 06, 2019. Comparison pelvic sonography March 30, 2019. Technique: Axial, coronal and sagittal imaging planes utilized. T1 and T2-weighted sequences include spin-echo, inversion recovery, diffusion weighted and postcontrast T1-weighted fat sat images. Gadolinium enhancement dose is 12 ml of intravenous ProHance. MRI findings: There is no evidence of free fluid in the pelvis. Urinary bladder is unremarkable. There are multiple low T2 intermediate T1 signal intensity uterine myometrial fibroids noted throughout the uterine myometrium. Endometrial cavity is somewhat dilated in the uterus measuring up to 16 mm in greatest thickness. No cervical or vaginal mass lesion is seen. Along the posterior margin of the body of the uterus, there is a septated complex lesion with low T1 low T2 signal intensity margin corresponding with the calcification seen on CT. One portion of the septated lesion shows bright signal intensity centrally on T1-weighted scans and bright T2 signal consistent with proteinaceous fluid content. The other portion of this septated lesion along the dorsal aspect of the uterus is intermediate and T2 and T1 signal also suggesting proteinaceous fluid content. Neither of these components demonstrates contrast enhancement. This septated lesion is not separable from the posterior serosal margin of the uterus suggesting a subserosal degenerated fibroid. The ovaries however are not separately identifiable on MRI scan. This may be due to atrophy of the ovaries. Is difficult to completely exclude a septated adnexal lesion. There are adjacent bowel loops. There is no evidence of pelvic adenopathy. Cortical and medullary bone signal intensity show no bony destructive lesion. There are advanced degenerative arthropathy changes at the hips bilaterally particularly on the right where there is evidence of old post-traumatic deformity. Impression: Complex mass along the posterior subserosal margin of the uterus and inseparable from the uterus most consistent with degenerated subserosal uterine fibroid. There are multiple other typical uterine fibroids. The ovaries are not separately identifiable. Electronically Signed by Kyle Lucero MD 04/11/2019 10:46 A
== END ==
LOC: M RAD 16:48
PROVIDERS: ATTEND Internal Medicine Medical Oncology
DX: C50.919 Malignant neoplasm of unspecified site of unspecified female breast (principal)
CPT/HCPCS: 72197; A9576

== ENCOUNTER → 2019-10-02 | Outpatient (CLI) | payer MEDICARE, OTHER ==
[~2019-10-02] MED LIST changes: -PROHANCE 279.3MG/ML 15ML VIAL (A9576) As Ordered ONE
--- NOTE | 2019-10-24 08:27 | DEXA ---
AP SPINE L1 - L4 0.960 -1.9 -0.2 LT FEMUR TOTAL 0.720 -2.3 -0.8 LT NECK 0.820 -1.6 0.2 RT FEMUR TOTAL 0.529 -3.8 -2.3 RT NECK 0.691 -2.5 -0.8 TOTAL BODY TOTAL OTHER L3-L4 0.903 -2.5 -0.8 COMMENTS: There is low bone density of the spine. There is low bone density of the left hip. There is Osteoporosis of the right hip. The density of the spine has increased 12.5% since the initial exam on 09/03/2006. The increased 3.9% since the most recent exam on 09/30/2018. The density of the left hip has increased 4.0% since the initial exam on 09/03/2006. The density of the left hip has decreased 0.8% since the most recent exam on 09/30/2018. The density of the right hip has increased 7.5% since the initial exam on 09/03/2006. The density of the right hip has increased 1.0% since the most recent exam on 09/30/2018. FOLLOW-UP: Recommendation for the next bone density exam: 2 years. CODY
== END ==
LOC: M WHC 05:39
PROVIDERS: ATTEND Internal Medicine Medical Oncology
DX: C50.911 Malignant neoplasm of unspecified site of right female breast (principal); M81.0 Age-related osteoporosis without current pathological fracture; M85.88 Other specified disorders of bone density and structure, other site; M85.852 Other specified disorders of bone density and structure, left thigh

== ENCOUNTER → 2020-01-03 | Outpatient (CLI) | payer MEDICARE, OTHER ==
[2020-01-03 13:16] LABS: BASO # 0.1 10^3/uL (0.0-0.2); BASO % 0.7 % (0.0-1.0); EOS # 0.2 10^3/uL (0.0-0.5); EOS % 2.4 % (0.0-3.0); HEMATOCRIT 47.2 % (36.0-47.0); HEMOGLOBIN 15.3 g/dl (12.0-15.5); LYMPH # 1.3 10^3/uL (1.5-5.0); LYMPH % 19.2 % (24.0-44.0); MEAN CORPUSCULAR HEMOGLOBIN 30.3 pg (27.0-33.0); MEAN CORPUSCULAR HGB CONC 32.4 g/dl (32.0-36.5); MEAN CORPUSCULAR VOLUME 93.5 fl (80.0-96.0); MONO # 0.6 10^3/uL (0.0-0.8); MONO % 8.8 % (0.0-5.0); NEUTROPHILS # 4.6 10^3/uL (1.5-8.5); NEUTROPHILS % 68.5 % (36.0-66.0); PLATELET COUNT, AUTOMATED 260 10^3/uL (150-450); RED BLOOD COUNT 5.05 10^6/uL (4.00-5.40); WHITE BLOOD COUNT 6.7 10^3/uL (4.0-10.0)
[2020-01-03 13:55] LABS: ALT/SGPT 21 U/L (12-78); BILIRUBIN,TOTAL 0.8 MG/DL (0.2-1.0); BLOOD UREA NITROGEN 18 MG/DL (7-18); CALCIUM LEVEL 9.2 MG/DL (8.8-10.2); CARBON DIOXIDE LEVEL 29 MEQ/L (21-32); CHLORIDE LEVEL 108 MEQ/L (98-107); CHOLESTEROL LEVEL 198 MG/DL (<200); CHOLESTEROL RISK RATIO 3.046 (<5); CREATININE FOR GFR 0.68 MG/DL (0.55-1.30); FREE T4 1.24 NG/DL (0.76-1.46); GLOMERULAR FILTRATION RATE > 60.0 (>39); GLUCOSE, FASTING 99 MG/DL (70-100); HDL CHOLESTEROL 65 MG/DL (>40); LDL CHOLESTEROL 115 MG/DL (<100); NON-HDL-C 133 MG/DL; POTASSIUM SERUM 4.1 MEQ/L (3.5-5.1); SODIUM LEVEL 143 MEQ/L (136-145); THYROID STIMULATING HORMONE 0.911 uIU/ML (0.358-3.740); TOTAL PROTEIN 7.3 GM/DL (6.4-8.2); TRIGLYCERIDES LEVEL 89 MG/DL (<150)
[2020-01-03 14:13] LABS: HEMOGLOBIN A1c 5.4 %
== END ==
LOC: M PLALAB 09:09
PROVIDERS: ATTEND Family Medicine
DX: R73.9 Hyperglycemia, unspecified (principal); E78.5 Hyperlipidemia, unspecified

== ENCOUNTER → 2020-08-30 | Outpatient (CLI) | payer MEDICARE, OTHER ==
[~2020-08-30] MED LIST changes: +CALTTAB6 PO; +COVI30VI IM
--- NOTE | 2020-08-30 14:35 | REP ---
INDICATION: HIP PAIN, BREAST CA. COMPARISON: 03/03/2019. TECHNIQUE/RADIOTRACER AND DOSE: Following the intravenous administration of 22.0mCi technetium 99 M MDP, patient's whole-body is imaged in multiple projections. FINDINGS: There is again scattered arthritic uptake noted, specifically at both shoulders and wrists, bilateral hips, left knee, right 1st metatarsophalangeal joint, cervical spine and lumbar spine. There is a new area of increased uptake in the right sacroiliac joint. No other new abnormal uptake is seen in the axial or appendicular skeleton. Renal and bladder activity are seen. IMPRESSION: Scattered arthritic uptake essentially unchanged. New area of increased uptake in the right sacroiliac joint may be due sacroiliitis, stress related changes or progressive arthritic change. Further evaluation may be made with CT or MRI. <Electronically signed by Luis Daniel Casillas > 08/30/20 [id number]
== END ==
LOC: M RAD 11:08
PROVIDERS: ATTEND Internal Medicine Medical Oncology
DX: C50.119 Malignant neoplasm of central portion of unspecified female breast (principal); M46.1 Sacroiliitis, not elsewhere classified
CPT/HCPCS: 78306; A9503

== ENCOUNTER → 2020-12-31 | Outpatient (CLI) | payer MEDICARE, OTHER ==
[2020-12-31 15:20] LABS: BASO # 0.1 10^3/uL (0.0-0.2); BASO % 0.9 % (0.0-1.0); EOS # 0.2 10^3/uL (0.0-0.5); EOS % 2.5 % (0.0-3.0); HEMATOCRIT 43.5 % (36.0-47.0); HEMOGLOBIN 13.9 g/dl (12.0-15.5); LYMPH # 1.8 10^3/uL (1.5-5.0); LYMPH % 26.5 % (24.0-44.0); MEAN CORPUSCULAR HEMOGLOBIN 30.2 pg (27.0-33.0); MEAN CORPUSCULAR VOLUME 94.4 fl (80.0-96.0); MONO # 0.8 10^3/uL (0.0-0.8); MONO % 11.6 % (2.0-8.0); NEUTROPHILS % 58.1 % (36.0-66.0); PLATELET COUNT, AUTOMATED 281 10^3/uL (150-450); RED BLOOD COUNT 4.61 10^6/uL (4.00-5.40); WHITE BLOOD COUNT 6.8 10^3/uL (4.0-10.0)
[2020-12-31 15:51] LABS: ALBUMIN 3.7 GM/DL (3.2-5.2); ALT/SGPT 24 U/L (12-78); BILIRUBIN,TOTAL 0.5 MG/DL (0.2-1.0); BLOOD UREA NITROGEN 17 MG/DL (7-18); CALCIUM LEVEL 9.9 MG/DL (8.8-10.2); CARBON DIOXIDE LEVEL 29 MEQ/L (21-32); CHLORIDE LEVEL 110 MEQ/L (98-107); CHOLESTEROL LEVEL 188 MG/DL (<200); CHOLESTEROL RISK RATIO 2.984 (<5); CREATININE FOR GFR 0.71 MG/DL (0.55-1.30); FREE T4 1.15 NG/DL (0.76-1.46); GLOMERULAR FILTRATION RATE > 60.0 (>39); GLUCOSE, FASTING 84 MG/DL (70-100); HDL CHOLESTEROL 63 MG/DL (>40); LDL CHOLESTEROL 108 MG/DL (<100); NON-HDL-C 125 MG/DL; POTASSIUM SERUM 4.2 MEQ/L (3.5-5.1); PTH INTACT 31.2 PG/ML (18.5-88.0); SODIUM LEVEL 144 MEQ/L (136-145); THYROID STIMULATING HORMONE 0.612 uIU/ML (0.358-3.740); TOTAL PROTEIN 6.8 GM/DL (6.4-8.2); TRIGLYCERIDES LEVEL 85 MG/DL (<150)
[2020-12-31 16:16] LABS: CA 125 19.6 U/ML (<30.2)
== END ==
LOC: M PLALAB 12:36
PROVIDERS: ATTEND Family Medicine
DX: E21.3 Hyperparathyroidism, unspecified (principal); E07.9 Disorder of thyroid, unspecified; E78.00 Pure hypercholesterolemia, unspecified

== ENCOUNTER → 2021-01-02 | Outpatient (CLI) | payer MEDICARE, OTHER ==
--- NOTE | 2021-01-02 13:00 | REP ---
INDICATION: PAIN IN LEFT HIP. COMPARISON: None TECHNIQUE: AP frog-lateral views FINDINGS: There is severe asymmetric hip joint space narrowing with subchondral sclerosis and prominent marginal osteophytosis. There is no acute fracture, dislocation, or subluxation. IMPRESSION: Advanced chronic changes <Electronically signed by Jovanni Alejandre > 01/02/21 [id number]
--- NOTE | 2021-01-02 13:18 | REP ---
INDICATION: PAIN IN LEFT HIP. COMPARISON: None. TECHNIQUE: Seven views of the lumbar spine were obtained which include flexion and extension lateral views. FINDINGS: Approximately 16 degrees of dextroscoliosis of the lower dorsal and upper lumbar spine is noted. Remote compression fractures of the superior endplates of L5 and L4 are noted with approximately 30% loss of volume it L5 and 20% loss of volume at L4. The compression fracture of inferior endplate of L1 is noted with approximately 20% loss of volume anteriorly. Large osteophytes are seen associated with the remote fractures. Moderate disc space narrowing is present at L1//2 and L2/3. Moderate facet joint arthropathy is present at L4/5 and L5/S1. Flexion and extension lateral views fail to demonstrate any forward or retro slippage of the vertebral bodies. The SI joints appear patent. A large calcification in the pelvis likely represents a calcified uterine fibroid. Both hips are partially visualized. There is marked remodeling of the right femoral head with significant loss of articular cartilage in the right hip joint. There is also significant loss of articular cartilage in the left hip joint and there likely is a lucent defect in the head of the left femur. Dedicated views of the left hip are recommended for better delineation. IMPRESSION: Moderately extensive degenerative changes as above. Numeral 2. Large calcification in the pelvis likely represents a calcified uterine fibroid. 3. Significant changes in both hip joints partially visualized with possible lucent defect in the head of the left femur. Dedicated imaging of the hips is suggested. <Electronically signed by Stefan Borrego > 01/02/21 5003
== END ==
LOC: M PLAIMG 11:57
PROVIDERS: ATTEND Family Medicine
DX: M16.12 Unilateral primary osteoarthritis, left hip (principal)

== ENCOUNTER → 2021-08-05 | Outpatient (CLI) | payer MEDICARE, OTHER ==
[~2021-08-05] MED LIST changes: +PROHANCE 279.3MG/ML 15ML VIAL As Ordered ONE; +PROL60SO SC
== END ==
LOC: M RAD 15:10
PROVIDERS: ATTEND Internal Medicine Medical Oncology
DX: N85.8 Other specified noninflammatory disorders of uterus (principal); C50.919 Malignant neoplasm of unspecified site of unspecified female breast
CPT/HCPCS: 72197; A9576

== ENCOUNTER → 2021-12-23 | Outpatient (CLI) | payer MEDICARE, OTHER ==
[~2021-12-23] MED LIST changes: -DOXY-350 PO; +DOXY-444 PO; -PROHANCE 279.3MG/ML 15ML VIAL As Ordered ONE
[2021-12-23 14:37] LABS: BASO % 0.4 % (0.0-1.0); EOS # 0.1 10^3/uL (0.0-0.5); EOS % 1.3 % (0.0-3.0); HEMATOCRIT 46.2 % (36.0-47.0); HEMOGLOBIN 15.2 g/dl (12.0-15.5); LYMPH # 1.5 10^3/uL (1.5-5.0); LYMPH % 21.6 % (24.0-44.0); MEAN CORPUSCULAR HEMOGLOBIN 30.9 pg (27.0-33.0); MEAN CORPUSCULAR HGB CONC 32.9 g/dl (32.0-36.5); MEAN CORPUSCULAR VOLUME 93.9 fl (80.0-96.0); MONO # 0.6 10^3/uL (0.0-0.8); NEUTROPHILS # 4.6 10^3/uL (1.5-8.5); NEUTROPHILS % 67.3 % (36.0-66.0); PLATELET COUNT, AUTOMATED 258 10^3/uL (150-450); RED BLOOD COUNT 4.92 10^6/uL (4.00-5.40); WHITE BLOOD COUNT 6.8 10^3/uL (4.0-10.0)
[2021-12-23 15:41] LABS: ALT/SGPT 32 U/L (12-78); BILIRUBIN,TOTAL 0.7 MG/DL (0.2-1.0); BLOOD UREA NITROGEN 17 MG/DL (7-18); CALCIUM LEVEL 9.6 MG/DL (8.8-10.2); CARBON DIOXIDE LEVEL 28 MEQ/L (21-32); CHLORIDE LEVEL 107 MEQ/L (98-107); CHOLESTEROL LEVEL 212 MG/DL (<200); CHOLESTEROL RISK RATIO 2.864 (<5); CREATININE FOR GFR 0.65 MG/DL (0.55-1.30); FREE T4 1.14 NG/DL (0.76-1.46); GLOMERULAR FILTRATION RATE > 60.0 (>39); GLUCOSE, FASTING 103 MG/DL (70-100); HDL CHOLESTEROL 74 MG/DL (>40); LDL CHOLESTEROL 121 MG/DL (<100); NON-HDL-C 138 MG/DL; SODIUM LEVEL 142 MEQ/L (136-145); TOTAL PROTEIN 7.3 GM/DL (6.4-8.2); TRIGLYCERIDES LEVEL 84 MG/DL (<150)
== END ==
LOC: M PLALAB 11:21
PROVIDERS: ATTEND Family Medicine
DX: E78.5 Hyperlipidemia, unspecified (principal)

== ENCOUNTER → 2023-01-12 | Outpatient (CLI) | payer MEDICARE, OTHER ==
[2023-01-12 13:31] LABS: BASO # 0.1 10^3/uL (0.0-0.2); BASO % 0.8 % (0.0-1.0); EOS # 0.2 10^3/uL (0.0-0.5); EOS % 2.7 % (0.0-3.0); HEMATOCRIT 45.7 % (36.0-47.0); LYMPH # 1.5 10^3/uL (1.5-5.0); LYMPH % 20.8 % (24.0-44.0); MEAN CORPUSCULAR HEMOGLOBIN 30.7 pg (27.0-33.0); MEAN CORPUSCULAR HGB CONC 32.8 g/dl (32.0-36.5); MEAN CORPUSCULAR VOLUME 93.5 fl (80.0-96.0); MONO # 0.7 10^3/uL (0.0-0.8); MONO % 9.3 % (2.0-8.0); NEUTROPHILS # 4.6 10^3/uL (1.5-8.5); NEUTROPHILS % 65.7 % (36.0-66.0); PLATELET COUNT, AUTOMATED 251 10^3/uL (150-450); RED BLOOD COUNT 4.89 10^6/uL (4.00-5.40); WHITE BLOOD COUNT 7.1 10^3/uL (4.0-10.0)
[2023-01-12 14:03] LABS: ALBUMIN 3.9 G/DL (3.2-5.2); ALKALINE PHOSPHATASE 82 U/L (46-116); ALT/SGPT 22 U/L (7.0-40); AST/SGOT 12 U/L (<34); BILIRUBIN,TOTAL 0.7 MG/DL (0.3-1.2); BLOOD UREA NITROGEN 15 MG/DL (9-23); CALCIUM LEVEL 9.6 MG/DL (8.3-10.6); CARBON DIOXIDE LEVEL 28 MMOL/L (20-31); CHLORIDE LEVEL 108 MMOL/L (98-107); CHOLESTEROL LEVEL 205 MG/DL (<200); CHOLESTEROL RISK RATIO 2.77 (<5); CREATININE FOR GFR 0.71 MG/DL (0.55-1.30); GLOMERULAR FILTRATION RATE > 60.0 (>39); GLUCOSE, FASTING 95 MG/DL (74-106); HDL CHOLESTEROL 73.9 MG/DL (>40); LDL CHOLESTEROL 115.3 MG/DL (<100); NON-HDL-C 131.1 MG/DL; POTASSIUM SERUM 4.1 MMOL/L (3.5-5.1); SODIUM LEVEL 146 MMOL/L (136-145); THYROID STIMULATING HORMONE 0.699 uIU/ML (0.55-4.78); TOTAL 25(OH) VITAMIN D 20.4 NG/ML (20.0-100.0); TOTAL PROTEIN 6.8 G/DL (5.7-8.2); TRIGLYCERIDES LEVEL 79 MG/DL (<150)
[2023-01-12 14:04] LABS: FREE T4 1.23 NG/DL (0.89-1.76)
== END ==
LOC: M PLALAB 09:24
PROVIDERS: ATTEND Family Medicine
DX: E78.5 Hyperlipidemia, unspecified (principal)

== ENCOUNTER → 2023-10-04 | Outpatient (CLI) | payer MEDICARE, OTHER ==
[~2023-10-04] MED LIST changes: +DOXY-440 PO; -DOXY-444 PO
== END ==
LOC: M WHC 08:58
PROVIDERS: ATTEND Internal Medicine Medical Oncology
DX: M81.0 Age-related osteoporosis without current pathological fracture (principal); Z85.3 Personal history of malignant neoplasm of breast

== ENCOUNTER 2023-12-04 12:23 | Emergency (ER) | payer MEDICARE, OTHER ==
[~2023-12-04] VITALS: Ht 157.5 cm; Wt 56.4 kg
[2023-12-04] MEDS: KETOROLAC 30 MG/ML 1ML VIAL IM ONE (13:53)
[2023-12-04 14:23] VITALS: BP 141/86; TEMP 97.8; O2SAT 98
== END 2023-12-04 14:28 | disposition home or self-care (01) ==
LOC: M ED 12:23
DX: M54.31 Sciatica, right side (principal); Z85.3 Personal history of malignant neoplasm of breast; Z79.899 Other long term (current) drug therapy
CPT/HCPCS: 96372; 99283; J1885

== ENCOUNTER → 2024-02-09 | Outpatient (CLI) | payer MEDICARE, OTHER | LOC: M PLAIMG 07:00 | PROVIDERS: ATTEND Student in an Organized Health Care Education/Training Program | DX: M47.896 Other spondylosis, lumbar region (principal) ==

== ENCOUNTER → 2024-02-29 | Outpatient (CLI) | payer MEDICARE, OTHER | LOC: M ONCR 12:50 | PROVIDERS: ATTEND General Practice | DX: C79.51 Secondary malignant neoplasm of bone (principal); C50.911 Malignant neoplasm of unspecified site of right female breast; C50.912 Malignant neoplasm of unspecified site of left female breast; Z79.891 Long term (current) use of opiate analgesic; Z90.13 Acquired absence of bilateral breasts and nipples; Z92.21 Personal history of antineoplastic chemotherapy; Z92.3 Personal history of irradiation; Z79.620 Long term (current) use of immunosuppressive biologic ==

== ENCOUNTER → 2024-03-06 | Outpatient (CLI) | payer MEDICARE, OTHER | LOC: M PLARAD 10:10 | PROVIDERS: ATTEND Family Medicine | DX: C79.51 Secondary malignant neoplasm of bone (principal); R93.2 Abnormal findings on diagnostic imaging of liver and biliary tract; Z85.3 Personal history of malignant neoplasm of breast | CPT/HCPCS: 78816; A9552 ==

== ENCOUNTER 2024-03-21 13:11 | Outpatient (RCR) | payer MEDICARE, OTHER ==
[~2024-03-21 13:11] MED LIST changes: -OXYC-600 PO
[2024-03-22] MEDS ORDERED: OXYC-600 PO (12:16)
== END 2024-03-24 ==
LOC: M ONCR 13:11
PROVIDERS: ATTEND General Practice
DX: Z51.0 Encounter for antineoplastic radiation therapy (principal); C50.111 Malignant neoplasm of central portion of right female breast; C79.51 Secondary malignant neoplasm of bone; R29.810 Facial weakness

== ENCOUNTER → 2024-03-21 | Outpatient (CLI) | payer MEDICARE, OTHER ==
[~2024-03-21] MED LIST changes: +OXYC-600 PO
== END ==
LOC: M RAD 14:38
PROVIDERS: ATTEND General Practice
DX: R29.810 Facial weakness (principal); C79.51 Secondary malignant neoplasm of bone; C50.111 Malignant neoplasm of central portion of right female breast

== ENCOUNTER → 2024-03-22 | Outpatient (POV) | payer MEDICARE, OTHER ==
[~2024-03-22] VITALS: Ht 157.5 cm; Wt 50.9 kg
[~2024-03-22] MED LIST changes: +MELO15TA28 PO; +MIRA3350 PO; +ONDA-282 PO; +OXYC-600 PO; +OXYC10TA12 PO; +SENN-186 PO
[2024-03-22 12:05] VITALS: BP 136/79; O2SAT 97
== END ==
LOC: M IRPOV 11:52
PROVIDERS: ATTEND Radiology Diagnostic Radiology
DX: C79.51 Secondary malignant neoplasm of bone (principal); C50.919 Malignant neoplasm of unspecified site of unspecified female breast; M84.58XA Pathological fracture in neoplastic disease, other specified site, initial encounter for fracture; R29.810 Facial weakness; R53.1 Weakness; Z79.891 Long term (current) use of opiate analgesic; Z92.21 Personal history of antineoplastic chemotherapy; Z92.3 Personal history of irradiation

== ENCOUNTER → 2024-03-28 | Outpatient (CLI) | payer MEDICARE, OTHER ==
[~2024-03-28] VITALS: Ht 160 cm; Wt 50.2 kg
[2024-03-28 14:44] VITALS: BP 123/81; O2SAT 98
== END ==
LOC: M PAL 14:14
PROVIDERS: ATTEND Family Medicine
DX: Z51.5 Encounter for palliative care (principal); C50.912 Malignant neoplasm of unspecified site of left female breast; C50.911 Malignant neoplasm of unspecified site of right female breast; C79.51 Secondary malignant neoplasm of bone; K59.00 Constipation, unspecified; Z66 Do not resuscitate; R52 Pain, unspecified; Z79.1 Long term (current) use of non-steroidal anti-inflammatories (NSAID); Z79.899 Other long term (current) drug therapy; Z79.891 Long term (current) use of opiate analgesic; R11.0 Nausea; R53.83 Other fatigue

== ENCOUNTER 2024-04-06 09:13 | Outpatient (RCR) | payer MEDICARE, OTHER | END 2024-04-21 | LOC: M ONCR 09:13 | PROVIDERS: ATTEND General Practice | DX: Z51.0 Encounter for antineoplastic radiation therapy (principal); C79.31 Secondary malignant neoplasm of brain ==

== ENCOUNTER → 2024-04-21 | Outpatient (CLI) | payer MEDICARE, OTHER ==
[~2024-04-21] MED LIST changes: +LIDOCAINE 1% MDV 20ML VIAL As Ordered ONE; +LIDOCAINE 1% MDV 20ML VIAL SC ONE; +NS (Normal Saline) 0.9% 1,000 ML IV SCH
[2024-04-21 12:20] VITALS: TEMP 98.8
[2024-04-21 14:00] VITALS: BP 122/60; O2SAT 100
== END ==
LOC: M IRPRO 11:59
PROVIDERS: ATTEND Radiology Diagnostic Radiology
DX: C50.919 Malignant neoplasm of unspecified site of unspecified female breast (principal)

== ENCOUNTER → 2024-04-24 | Outpatient (CLI) | payer MEDICARE, OTHER ==
[~2024-04-24] MED LIST changes: -LIDOCAINE 1% MDV 20ML VIAL As Ordered ONE; -LIDOCAINE 1% MDV 20ML VIAL SC ONE; -NS (Normal Saline) 0.9% 1,000 ML IV SCH
[2024-04-24 14:19] LABS: BASO % 0.5 % (0.0-1.0); EOS # 0.1 10^3/uL (0.0-0.5); EOS % 1.6 % (0.0-3.0); HEMATOCRIT 38.3 % (36.0-47.0); HEMOGLOBIN 12.2 g/dl (12.0-15.5); LYMPH # 0.6 10^3/uL (1.5-5.0); LYMPH % 10.1 % (24.0-44.0); MEAN CORPUSCULAR HGB CONC 31.9 g/dl (32.0-36.5); MEAN CORPUSCULAR VOLUME 100.5 fl (80.0-96.0); MONO # 0.6 10^3/uL (0.0-0.8); NEUTROPHILS # 4.8 10^3/uL (1.5-8.5); NEUTROPHILS % 77.4 % (36.0-66.0); PLATELET COUNT, AUTOMATED 297 10^3/uL (150-450); RED BLOOD COUNT 3.81 10^6/uL (4.00-5.40); WHITE BLOOD COUNT 6.2 10^3/uL (4.0-10.0)
[2024-04-24 14:37] LABS: BLOOD UREA NITROGEN 14 MG/DL (9-23); CALCIUM LEVEL 9.2 MG/DL (8.3-10.6); CARBON DIOXIDE LEVEL 29 MMOL/L (20-31); CHLORIDE LEVEL 108 MMOL/L (98-107); CREATININE FOR GFR 0.57 MG/DL (0.55-1.30); GLOMERULAR FILTRATION RATE > 60.0 (>39); GLUCOSE, FASTING 84 MG/DL (74-106); SODIUM LEVEL 145 MMOL/L (136-145)
[2024-04-24 14:39] LABS: INR 0.92; PROTHROMBIN TIME 12.7 SECONDS (12.5-14.5)
== END ==
LOC: M PLALAB 12:09
PROVIDERS: ATTEND Family Medicine
DX: C79.51 Secondary malignant neoplasm of bone (principal); Z79.01 Long term (current) use of anticoagulants

== ENCOUNTER 2024-04-28 09:47 | Outpatient (RCR) | payer MEDICARE, OTHER ==
[~2024-04-28 09:47] MED LIST changes: +DENO60SY2 SC; -PROL60SO SC
[2024-05-03] MEDS ORDERED: POLY17PO18 PO (09:19)
[2024-05-03] MEDS ORDERED: ONDA-282 PO (09:19)
[2024-05-03] MEDS ORDERED: OXYC10TA12 PO (09:19)
[2024-05-03] MEDS ORDERED: SENN-186 PO (09:19)
[2024-05-17] MEDS ORDERED: OXYC10TA12 PO (14:04)
== END 2024-05-22 ==
LOC: M ONCR 09:47
PROVIDERS: ATTEND General Practice
DX: Z51.0 Encounter for antineoplastic radiation therapy (principal); C79.31 Secondary malignant neoplasm of brain

== ENCOUNTER 2024-05-02 07:12 | Observation (INO) | payer MEDICARE, OTHER ==
[~2024-05-02] VITALS: Ht 157.5 cm; Wt 47.5 kg
[2024-05-02] MEDS: ceFAZolin SODIUM 2 GM in DEXTROSE 5% (D5W) ADV/MINI-BAG 50 ML IV ONE (07:20)
[2024-05-02] MEDS ORDERED: LIDOCAINE 2% 100MG/5ML SDV (FOR ANES.) As Ordered ONE (07:29)
[2024-05-02] MEDS ORDERED: propofoL 200 MG/20 ML VIAL As Ordered ONE (07:29)
[2024-05-02] MEDS ORDERED: ROCURONIUM BROMIDE 50MG/5ML VIAL As Ordered ONE (07:30)
[2024-05-02] MEDS ORDERED: SUGAMMADEX SODIUM 500 MG/5 ML VIAL (BRIDION) As Ordered ONE (07:32)
[2024-05-02] MEDS ORDERED: ONDANSETRON 4MG 2ML VIAL As Ordered ONE (07:33)
[2024-05-02] MEDS ORDERED: fentaNYL 100 MCG/2 ML INJECTION As Ordered ONE (07:35)
[2024-05-02] MEDS ORDERED: ISOVUE-300 61% 100ML VIAL As Ordered ONE (07:45)
[2024-05-02] MEDS ORDERED: LIDOCAINE 1% MDV 20ML VIAL As Ordered ONE (07:46)
[2024-05-02] MEDS: ISOVUE-300 61% 100ML VIAL IV ONE (08:10)
[2024-05-02] MEDS ORDERED: ACETAMINOPHEN 1000MG/100ML IV BAG As Ordered ONE (09:08)
[2024-05-02] MEDS ORDERED: KETOROLAC 60MG 2ML VIAL As Ordered ONE (10:44)
[2024-05-02] MEDS: LIDOCAINE 1% MDV 20ML VIAL SC ONE (10:54)
[2024-05-02] MEDS: dexAMETHasone 20MG/5ML VIAL IV ONE (11:00)
[2024-05-02] MEDS ORDERED: NORCO, ANEXSIA 5/325MG TABLET (HYDROcodone/ACETAMINOPHEN) PO PRN (11:40)
[2024-05-02] MEDS ORDERED: fentaNYL 100 MCG/2 ML INJECTION IV PRN (11:40)
[2024-05-02 13:45] VITALS: BP 137/81; TEMP 97.9; O2SAT 99
[2024-05-02] MEDS ORDERED: MAALOX 30 ML SUSP *UDC PO PRN (14:05)
[2024-05-02] MEDS ORDERED: MOM 30ML SUSPENSION UDC PO PRN (14:05)
[2024-05-02 14:45] VITALS: BP 134/79; TEMP 97.9; O2SAT 97
[2024-05-02 15:45] VITALS: BP 139/82; TEMP 97.9; O2SAT 93
[2024-05-02 16:45] VITALS: BP 127/72; TEMP 98.6; O2SAT 96
[2024-05-02] MEDS ORDERED: dexAMETHasone 4 MG TAB PO SCH (17:00)
[2024-05-02] MEDS: DOCUSATE SODIUM 100MG CAPSULE PO SCH (20:03)
[2024-05-02 20:45] VITALS: BP 125/71; TEMP 97.9; O2SAT 96
[2024-05-03 00:41] VITALS: BP 122/69; TEMP 98.4; O2SAT 93
[2024-05-03 04:20] VITALS: BP 110/65; TEMP 97.9; O2SAT 94
[2024-05-03 06:11] LABS: HEMATOCRIT 30.8 % (36.0-47.0); HEMOGLOBIN 10.2 g/dl (12.0-15.5); MEAN CORPUSCULAR HGB CONC 33.1 g/dl (32.0-36.5); MEAN CORPUSCULAR VOLUME 96.6 fl (80.0-96.0); PLATELET COUNT, AUTOMATED 226 10^3/uL (150-450); RED BLOOD COUNT 3.19 10^6/uL (4.00-5.40); WHITE BLOOD COUNT 5.9 10^3/uL (4.0-10.0)
[2024-05-03 06:27] LABS: ALBUMIN 2.5 G/DL (3.2-5.2); ALKALINE PHOSPHATASE 203 U/L (35-104); ALT/SGPT 15 U/L (7.0-40); AST/SGOT 19 U/L (<34); BILIRUBIN,TOTAL 0.4 MG/DL (0.3-1.2); BLOOD UREA NITROGEN 17 MG/DL (9-23); CALCIUM LEVEL 8.9 MG/DL (8.3-10.6); CARBON DIOXIDE LEVEL 26 MMOL/L (20-31); CHLORIDE LEVEL 110 MMOL/L (98-107); CREATININE FOR GFR 0.49 MG/DL (0.55-1.30); GLOMERULAR FILTRATION RATE > 60.0 (>39); GLUCOSE, FASTING 108 MG/DL (74-106); POTASSIUM SERUM 3.7 MMOL/L (3.5-5.1); SODIUM LEVEL 144 MMOL/L (136-145); TOTAL PROTEIN 5.2 G/DL (5.7-8.2)
[2024-05-03] MEDS ORDERED: PERCOCET 5MG/325MG TAB PO PRN (08:05)
[2024-05-03 08:45] VITALS: BP 135/79; TEMP 97.7; O2SAT 96
[2024-05-03] MEDS ORDERED: SENN-186 PO (09:19)
[2024-05-03] MEDS ORDERED: ONDA-282 PO (09:19)
[2024-05-03] MEDS ORDERED: OXYC10TA12 PO (09:19)
[2024-05-03] MEDS ORDERED: POLY17PO18 PO (09:19)
[2024-05-03] MEDS ORDERED: HOME MED LIST COMPLETE! XX SCH (09:20)
[2024-05-03 12:45] VITALS: BP 130/73; TEMP 98.1; O2SAT 93
== END 2024-05-03 13:40 | disposition home or self-care (01) ==
LOC: M IRPRO 07:12 → M RR INP 11:20 → M MSPAV 13:38
PROVIDERS: ADMIT Student in an Organized Health Care Education/Training Program; ATTEND Student in an Organized Health Care Education/Training Program
DX: C79.51 Secondary malignant neoplasm of bone (principal); Z85.3 Personal history of malignant neoplasm of breast; Z90.13 Acquired absence of bilateral breasts and nipples; M84.48XA Pathological fracture, other site, initial encounter for fracture; M19.90 Unspecified osteoarthritis, unspecified site; M54.9 Dorsalgia, unspecified; Z80.1 Family history of malignant neoplasm of trachea, bronchus and lung; Z99.89 Dependence on other enabling machines and devices; Z79.899 Other long term (current) drug therapy; Z79.891 Long term (current) use of opiate analgesic
CPT/HCPCS: 22514; 22515; 36415; 64628; 72100; 80053; 85027; 88305; 88311; 96374; 97162; C1886; G0378; J0131; J1100; J1885; J2405; J3010; Q9967

== ENCOUNTER → 2024-05-08 | Outpatient (CLI) | payer MEDICARE, OTHER ==
[~2024-05-08] MED LIST changes: +POLY17PO18 PO
== END ==
LOC: M PLAIMG 11:32
PROVIDERS: ATTEND Family Medicine
DX: S42.002A Fracture of unspecified part of left clavicle, initial encounter for closed fracture (principal); W18.30XA Fall on same level, unspecified, initial encounter; Y92.009 Unspecified place in unspecified non-institutional (private) residence as the place of occurrence of the external cause

== ENCOUNTER → 2024-05-16 | Outpatient (CLI) | payer MEDICARE, OTHER | LOC: M IRPRO 12:01 | PROVIDERS: ATTEND Internal Medicine Medical Oncology | DX: K76.89 Other specified diseases of liver (principal); Z85.3 Personal history of malignant neoplasm of breast; Z53.9 Procedure and treatment not carried out, unspecified reason ==

== ENCOUNTER → 2024-05-19 | Outpatient (CLI) | payer MEDICARE, OTHER ==
[~2024-05-19] MED LIST changes: +LIDOCAINE 1% MDV 20ML VIAL As Ordered ONE
[2024-05-19 10:00] VITALS: TEMP 97.9
[2024-05-19 12:50] VITALS: BP 134/78; O2SAT 97
== END ==
LOC: M IRPRO 09:51
PROVIDERS: ATTEND Internal Medicine Medical Oncology
DX: C78.7 Secondary malignant neoplasm of liver and intrahepatic bile duct (principal)

== ENCOUNTER 2024-05-23 04:28 | Observation (INO) | payer MEDICARE, OTHER ==
[2024-05-23] VITALS (9 sets, daily range): BP systolic 117–149; BP diastolic 64–77; TEMP 97.1–98.3; O2SAT 95–99
[~2024-05-23] VITALS: Ht 157.5 cm; Wt 43.0 kg
[~2024-05-23 04:28] MED LIST changes: -LIDOCAINE 1% MDV 20ML VIAL As Ordered ONE
[2024-05-23 06:01] LABS: BASO % 0.3 % (0.0-1.0); HEMATOCRIT 40.7 % (36.0-47.0); HEMOGLOBIN 13.5 g/dl (12.0-15.5); LYMPH # 0.3 10^3/uL (1.5-5.0); LYMPH % 3.6 % (24.0-44.0); MEAN CORPUSCULAR HEMOGLOBIN 31.3 pg (27.0-33.0); MEAN CORPUSCULAR HGB CONC 33.2 g/dl (32.0-36.5); MEAN CORPUSCULAR VOLUME 94.4 fl (80.0-96.0); MONO # 0.7 10^3/uL (0.0-0.8); NEUTROPHILS # 7.7 10^3/uL (1.5-8.5); NEUTROPHILS % 87.2 % (36.0-66.0); PLATELET COUNT, AUTOMATED 269 10^3/uL (150-450); RED BLOOD COUNT 4.31 10^6/uL (4.00-5.40); WHITE BLOOD COUNT 8.9 10^3/uL (4.0-10.0)
[2024-05-23 06:13] LABS: INR 0.99; PARTIAL THROMBOPLASTIN TIME 28.1 SECONDS (24.8-34.2); PROTHROMBIN TIME 13.4 SECONDS (12.5-14.5)
[2024-05-23 06:31] LABS: ALBUMIN 3.2 G/DL (3.2-5.2); ALKALINE PHOSPHATASE 265 U/L (35-104); ALT/SGPT 29 U/L (7.0-40); AST/SGOT 59 U/L (<34); BILIRUBIN,TOTAL 0.6 MG/DL (0.3-1.2); BLOOD UREA NITROGEN 21 MG/DL (9-23); CALCIUM LEVEL 9.8 MG/DL (8.3-10.6); CARBON DIOXIDE LEVEL 26 MMOL/L (20-31); CHLORIDE LEVEL 105 MMOL/L (98-107); CREATININE FOR GFR 0.47 MG/DL (0.55-1.30); GLOMERULAR FILTRATION RATE > 60.0 (>39); GLUCOSE, FASTING 138 MG/DL (74-106); POTASSIUM SERUM 3.8 MMOL/L (3.5-5.1); SODIUM LEVEL 142 MMOL/L (136-145); TOTAL PROTEIN 6.6 G/DL (5.7-8.2)
[2024-05-23] MEDS ORDERED: HOME MED LIST COMPLETE! XX SCH (07:50)
[2024-05-23] MEDS ORDERED: ONDANSETRON 4MG ORAL DISINTEGRATING TAB PO PRN (08:20)
[2024-05-23] MEDS ORDERED: MORPHINE 2 MG/ML 1ML VIAL IV PRN (08:20)
[2024-05-23] MEDS ORDERED: MORPHINE 4 MG/ML 1ML VIAL IV PRN (08:20)
[2024-05-23] MEDS: DOCUSATE SODIUM 100MG CAPSULE PO SCH (09:00)
[2024-05-23 09:09] LABS: INR 0.99; PARTIAL THROMBOPLASTIN TIME 26.6 SECONDS (24.8-34.2); PROTHROMBIN TIME 13.4 SECONDS (12.5-14.5)
[2024-05-23] MEDS ORDERED: SUGAMMADEX SODIUM 500 MG/5 ML VIAL (BRIDION) As Ordered ONE (10:06)
[2024-05-23] MEDS ORDERED: ROCURONIUM BROMIDE 50MG/5ML VIAL As Ordered ONE (10:06)
[2024-05-23] MEDS ORDERED: propofoL 200 MG/20 ML VIAL As Ordered ONE (10:06)
[2024-05-23] MEDS ORDERED: ACETAMINOPHEN 1000MG/100ML IV BAG As Ordered ONE (10:06)
[2024-05-23] MEDS ORDERED: LIDOCAINE 2% 100MG/5ML SDV (FOR ANES.) As Ordered ONE (10:06)
[2024-05-23] MEDS ORDERED: ONDANSETRON 4MG 2ML VIAL As Ordered ONE (10:07)
[2024-05-23] MEDS ORDERED: KETOROLAC 30 MG/ML 1ML VIAL As Ordered ONE (10:07)
[2024-05-23] MEDS ORDERED: MIDAZOLAM INJ 2MG/2ML VIAL As Ordered ONE (10:08)
[2024-05-23] MEDS ORDERED: fentaNYL 100 MCG/2 ML INJECTION As Ordered ONE (10:08)
[2024-05-23] MEDS: ceFAZolin SODIUM 2 GM VIAL As Ordered ONE (12:20)
[2024-05-23] MEDS ORDERED: PHENYLephrine 500MCG 5ML (100MCG/ML) SYRINGE As Ordered ONE (12:24)
[2024-05-23] MEDS ORDERED: HYDROmorphone HCL 2MG/ML 1ML VIAL As Ordered ONE (12:50)
[2024-05-23] MEDS: PANTOPRAZOLE 40MG VIAL IV SCH (15:36)
[2024-05-23] MEDS: SENNA 8.6 MG TAB (SENOKOT) PO SCH (20:28)
[2024-05-23] MEDS: ceFAZolin SODIUM 2 GM in DEXTROSE 5% (D5W) ADV/MINI-BAG 50 ML IV SCH (20:29)
[2024-05-24 03:50] VITALS: BP 137/79; TEMP 97.8; O2SAT 100
[2024-05-24 06:48] LABS: HEMATOCRIT 32.3 % (36.0-47.0); MEAN CORPUSCULAR HEMOGLOBIN 30.8 pg (27.0-33.0); MEAN CORPUSCULAR HGB CONC 32.8 g/dl (32.0-36.5); MEAN CORPUSCULAR VOLUME 93.9 fl (80.0-96.0); PLATELET COUNT, AUTOMATED 231 10^3/uL (150-450); RED BLOOD COUNT 3.44 10^6/uL (4.00-5.40)
[2024-05-24 06:52] LABS: HEMOGLOBIN 10.6 g/dl (12.0-15.5)
[2024-05-24 07:06] LABS: ALBUMIN 2.5 G/DL (3.2-5.2); ALKALINE PHOSPHATASE 189 U/L (35-104); ALT/SGPT 17 U/L (7.0-40); AST/SGOT 31 U/L (<34); BILIRUBIN,TOTAL 0.4 MG/DL (0.3-1.2); BLOOD UREA NITROGEN 19 MG/DL (9-23); CALCIUM LEVEL 8.8 MG/DL (8.3-10.6); CARBON DIOXIDE LEVEL 29 MMOL/L (20-31); CHLORIDE LEVEL 105 MMOL/L (98-107); CREATININE FOR GFR 0.51 MG/DL (0.55-1.30); GLOMERULAR FILTRATION RATE > 60.0 (>39); GLUCOSE, FASTING 85 MG/DL (74-106); SODIUM LEVEL 142 MMOL/L (136-145); TOTAL PROTEIN 5.1 G/DL (5.7-8.2)
[2024-05-24] MEDS ORDERED: POTASSIUM CHLORIDE 10MEQ SR TABLET PO ONE (08:00)
[2024-05-24 08:17] VITALS: BP 136/66; TEMP 97.6; O2SAT 100
[2024-05-24] MEDS: POTASSIUM CHLORIDE 10MEQ SR TABLET PO SCH ×2 (09:14→20:42)
[2024-05-24] MEDS ORDERED: oxyCODONE 5MG TAB PO PRN (11:05)
[2024-05-24] MEDS ORDERED: ACET32TAB PO (11:19)
[2024-05-24 12:05] VITALS: BP 115/79; TEMP 98.2; O2SAT 97
[2024-05-24 14:40] LABS: BLOOD UREA NITROGEN 15 MG/DL (9-23); CALCIUM LEVEL 9.1 MG/DL (8.3-10.6); CARBON DIOXIDE LEVEL 29 MMOL/L (20-31); CHLORIDE LEVEL 105 MMOL/L (98-107); CREATININE FOR GFR 0.48 MG/DL (0.55-1.30); GLOMERULAR FILTRATION RATE > 60.0 (>39); GLUCOSE, FASTING 113 MG/DL (74-106); POTASSIUM SERUM 3.1 MMOL/L (3.5-5.1); SODIUM LEVEL 142 MMOL/L (136-145)
[2024-05-24] MEDS: POTASSIUM CHLORIDE 10MEQ SR TABLET PO ONE ×2 (16:57→18:40)
[2024-05-24] MEDS: ACETAMINOPHEN 325 MG TAB PO PRN (21:39)
[2024-05-25 04:30] VITALS: BP 122/84; TEMP 97.7; O2SAT 98
[2024-05-25 06:30] LABS: BLOOD UREA NITROGEN 12 MG/DL (9-23); CALCIUM LEVEL 9.1 MG/DL (8.3-10.6); CARBON DIOXIDE LEVEL 25 MMOL/L (20-31); CHLORIDE LEVEL 110 MMOL/L (98-107); CREATININE FOR GFR 0.46 MG/DL (0.55-1.30); GLOMERULAR FILTRATION RATE > 60.0 (>39); GLUCOSE, FASTING 86 MG/DL (74-106); POTASSIUM SERUM 4.4 MMOL/L (3.5-5.1); SODIUM LEVEL 143 MMOL/L (136-145)
[2024-05-25] MEDS: oxyCODONE 5MG TAB PO PRN (12:46)
[2024-05-25 16:00] VITALS: BP 130/79; TEMP 97.5; O2SAT 99
[2024-05-25 20:00] VITALS: BP 126/74; TEMP 97.5; O2SAT 98
[2024-05-26 03:25] VITALS: BP 152/87; TEMP 97.9; O2SAT 97
[2024-05-26 06:10] LABS: HEMATOCRIT 33.4 % (36.0-47.0); MEAN CORPUSCULAR HEMOGLOBIN 31.3 pg (27.0-33.0); MEAN CORPUSCULAR HGB CONC 32.9 g/dl (32.0-36.5); MEAN CORPUSCULAR VOLUME 94.9 fl (80.0-96.0); PLATELET COUNT, AUTOMATED 220 10^3/uL (150-450); RED BLOOD COUNT 3.52 10^6/uL (4.00-5.40)
[2024-05-26 06:44] LABS: ALBUMIN 2.6 G/DL (3.2-5.2); ALKALINE PHOSPHATASE 229 U/L (35-104); ALT/SGPT 19 U/L (7.0-40); AST/SGOT 40 U/L (<34); BILIRUBIN,TOTAL 0.7 MG/DL (0.3-1.2); BLOOD UREA NITROGEN 11 MG/DL (9-23); CALCIUM LEVEL 9.2 MG/DL (8.3-10.6); CARBON DIOXIDE LEVEL 25 MMOL/L (20-31); CHLORIDE LEVEL 106 MMOL/L (98-107); CREATININE FOR GFR 0.39 MG/DL (0.55-1.30); GLOMERULAR FILTRATION RATE > 60.0 (>39); GLUCOSE, FASTING 87 MG/DL (74-106); POTASSIUM SERUM 4.1 MMOL/L (3.5-5.1); SODIUM LEVEL 141 MMOL/L (136-145); TOTAL PROTEIN 5.4 G/DL (5.7-8.2)
[2024-05-26 12:00] VITALS: BP 122/85; TEMP 97.7; O2SAT 98
[2024-05-26 20:30] VITALS: BP 129/72; TEMP 97.5; O2SAT 95
[2024-05-27 04:43] VITALS: BP 134/76; TEMP 96.8; O2SAT 98
[2024-05-27 12:29] VITALS: BP 131/82; TEMP 97.9; O2SAT 97
[2024-05-27 19:44] VITALS: BP 115/79; TEMP 97.7; O2SAT 95
[2024-05-28 04:01] VITALS: BP 119/80; TEMP 97.7; O2SAT 98
[2024-05-28 11:59] VITALS: BP 127/79; TEMP 97.9; O2SAT 95
[2024-05-29 04:53] VITALS: BP 128/80; TEMP 98.1; O2SAT 97
[2024-05-29 07:00] LABS: HEMATOCRIT 39.5 % (36.0-47.0); HEMOGLOBIN 13.1 g/dl (12.0-15.5); MEAN CORPUSCULAR HEMOGLOBIN 30.7 pg (27.0-33.0); MEAN CORPUSCULAR HGB CONC 33.2 g/dl (32.0-36.5); MEAN CORPUSCULAR VOLUME 92.5 fl (80.0-96.0); PLATELET COUNT, AUTOMATED 280 10^3/uL (150-450); RED BLOOD COUNT 4.27 10^6/uL (4.00-5.40); WHITE BLOOD COUNT 6.4 10^3/uL (4.0-10.0)
[2024-05-29 07:34] LABS: ALKALINE PHOSPHATASE 324 U/L (35-104); ALT/SGPT 23 U/L (7.0-40); AST/SGOT 51 U/L (<34); BILIRUBIN,TOTAL 0.7 MG/DL (0.3-1.2); BLOOD UREA NITROGEN 13 MG/DL (9-23); CALCIUM LEVEL 9.8 MG/DL (8.3-10.6); CARBON DIOXIDE LEVEL 24 MMOL/L (20-31); CHLORIDE LEVEL 106 MMOL/L (98-107); CREATININE FOR GFR 0.46 MG/DL (0.55-1.30); GLOMERULAR FILTRATION RATE > 60.0 (>39); GLUCOSE, FASTING 106 MG/DL (74-106); SODIUM LEVEL 139 MMOL/L (136-145); TOTAL PROTEIN 6.2 G/DL (5.7-8.2)
[2024-05-29 12:00] VITALS: BP 125/79; TEMP 97.5; O2SAT 97
[2024-05-29 13:13] VITALS: BP 130/90; TEMP 97.3; O2SAT 97
[2024-05-29 19:31] VITALS: BP 121/78; TEMP 97.7; O2SAT 98
[2024-05-30 04:14] VITALS: BP 138/84; TEMP 97.5; O2SAT 98
[2024-05-31 04:10] VITALS: BP 124/75; TEMP 97.5; O2SAT 96
== END 2024-05-31 12:25 | disposition home health service (06) ==
LOC: EDBD 04:28 → M ED 04:28 → M ED INP 04:29 → M MS4PR 10:20 → M MS5PR 05-25 16:07
PROVIDERS: ADMIT Internal Medicine; ATTEND Internal Medicine Nephrology
DX: M84.521A Pathological fracture in neoplastic disease, right humerus, initial encounter for fracture (principal); C79.51 Secondary malignant neoplasm of bone; M84.58XD Pathological fracture in neoplastic disease, other specified site, subsequent encounter for fracture with routine healing; C50.919 Malignant neoplasm of unspecified site of unspecified female breast; Z90.13 Acquired absence of bilateral breasts and nipples; Z92.21 Personal history of antineoplastic chemotherapy; Z92.3 Personal history of irradiation; Z92.29 Personal history of other drug therapy; Z85.79 Personal history of other malignant neoplasms of lymphoid, hematopoietic and related tissues; Z98.1 Arthrodesis status; M19.90 Unspecified osteoarthritis, unspecified site; M54.9 Dorsalgia, unspecified; G89.29 Other chronic pain; E87.6 Hypokalemia; D64.9 Anemia, unspecified; R53.83 Other fatigue; R63.8 Other symptoms and signs concerning food and fluid intake; R11.0 Nausea; R29.6 Repeated falls; Z79.899 Other long term (current) drug therapy
CPT/HCPCS: 24516; 36415; 73030; 73060; 76000; 80048; 80053; 85025; 85027; 85610; 85730; 86850; 86900; 86901; 88304; 88311; 93005; 96365; 96375; 96376; 97116; 97161; 97165; 97530; 97535; 99285; C1713; C1769; G0378; J0131; J0665; J0690; J0744; J1100; J1171; J1885; J2250; J2371; J2405; J2470; J3010

== ENCOUNTER 2024-06-19 11:23 | Observation (INO) | payer MEDICARE, OTHER ==
[~2024-06-19] VITALS: Ht 160 cm; Wt 40.9 kg
[~2024-06-19 11:23] MED LIST changes: +ACET32TAB PO
[2024-06-19 14:30] LABS: BASO % 0.2 % (0.0-1.0); HEMATOCRIT 36.1 % (36.0-47.0); HEMOGLOBIN 12.1 g/dl (12.0-15.5); LYMPH # 0.6 10^3/uL (1.5-5.0); LYMPH % 6.2 % (24.0-44.0); MEAN CORPUSCULAR HEMOGLOBIN 30.7 pg (27.0-33.0); MEAN CORPUSCULAR HGB CONC 33.5 g/dl (32.0-36.5); MEAN CORPUSCULAR VOLUME 91.6 fl (80.0-96.0); MONO # 0.8 10^3/uL (0.0-0.8); NEUTROPHILS # 7.8 10^3/uL (1.5-8.5); NEUTROPHILS % 83.3 % (36.0-66.0); PLATELET COUNT, AUTOMATED 265 10^3/uL (150-450); RED BLOOD COUNT 3.94 10^6/uL (4.00-5.40); WHITE BLOOD COUNT 9.3 10^3/uL (4.0-10.0)
[2024-06-19] MEDS: oxyCODONE 5MG TAB PO ONE (14:30)
[2024-06-19 14:58] LABS: BLOOD UREA NITROGEN 16 MG/DL (9-23); CALCIUM LEVEL 10.3 MG/DL (8.3-10.6); CARBON DIOXIDE LEVEL 28 MMOL/L (20-31); CHLORIDE LEVEL 106 MMOL/L (98-107); CREATININE FOR GFR 0.48 MG/DL (0.55-1.30); GLOMERULAR FILTRATION RATE > 90.0 (>39); GLUCOSE, FASTING 96 MG/DL (74-106); MAGNESIUM LEVEL 2.2 MG/DL (1.8-2.4); POTASSIUM SERUM 3.4 MMOL/L (3.5-5.1); SODIUM LEVEL 144 MMOL/L (136-145)
[2024-06-19 14:59] LABS: FREE T4 1.08 NG/DL (0.89-1.76)
[2024-06-19 15:00] LABS: THYROID STIMULATING HORMONE 0.387 uIU/ML (0.55-4.78)
[2024-06-19] MEDS ORDERED: HOME MED LIST COMPLETE! XX SCH (16:45)
[2024-06-19] MEDS ORDERED: KETOROLAC 30 MG/ML 1ML VIAL IV PRN ×2 (17:15)
[2024-06-19] MEDS ORDERED: MOM 30ML SUSPENSION UDC PO PRN (17:15)
[2024-06-19] MEDS ORDERED: ONDANSETRON 4MG ORAL DISINTEGRATING TAB PO PRN (20:50)
[2024-06-19] MEDS: SENNA 8.6 MG TAB PO SCH (21:49)
[2024-06-19] MEDS: DOCUSATE SODIUM 100MG CAPSULE PO SCH (21:49)
[2024-06-19] MEDS: oxyCODONE 5MG TAB PO PRN (21:53)
[2024-06-20] MEDS: ENOXAPARIN 30MG/0.3ML SYRINGE (J1650 PER 10MG) SC SCH (08:04)
[2024-06-21] MEDS: ACETAMINOPHEN 325 MG TAB PO PRN (09:42)
[2024-06-22 06:32] VITALS: TEMP 97.9
[2024-06-22] MEDS: MELOXICAM 7.5 MG TAB PO SCH (09:16)
[2024-06-22 14:00] VITALS: BP 124/73
[2024-06-22 14:01] LABS: HEMATOCRIT 38.2 % (36.0-47.0); HEMOGLOBIN 12.6 g/dl (12.0-15.5); MEAN CORPUSCULAR HEMOGLOBIN 29.8 pg (27.0-33.0); MEAN CORPUSCULAR VOLUME 90.3 fl (80.0-96.0); PLATELET COUNT, AUTOMATED 292 10^3/uL (150-450); RED BLOOD COUNT 4.23 10^6/uL (4.00-5.40); WHITE BLOOD COUNT 4.3 10^3/uL (4.0-10.0)
[2024-06-22 14:31] LABS: ALBUMIN 2.6 G/DL (3.2-5.2); ALKALINE PHOSPHATASE 368 U/L (35-104); ALT/SGPT 26 U/L (7.0-40); AST/SGOT 49 U/L (<34); BILIRUBIN,TOTAL 0.4 MG/DL (0.3-1.2); BLOOD UREA NITROGEN 10 MG/DL (9-23); CALCIUM LEVEL 9.8 MG/DL (8.3-10.6); CARBON DIOXIDE LEVEL 28 MMOL/L (20-31); CHLORIDE LEVEL 100 MMOL/L (98-107); GLOMERULAR FILTRATION RATE > 90.0 (>39); GLUCOSE, FASTING 90 MG/DL (74-106); POTASSIUM SERUM 3.1 MMOL/L (3.5-5.1); SODIUM LEVEL 137 MMOL/L (136-145); TOTAL PROTEIN 5.6 G/DL (5.7-8.2)
[2024-06-22 14:45] VITALS: O2SAT 96
[2024-06-22] MEDS ORDERED: HYOSCYAMINE SULFATE 0.125 MG SUBL TABLET PO PRN (15:05)
[2024-06-22] MEDS ORDERED: ONDANSETRON 4MG ORAL DISINTEGRATING TAB PO PRN (15:05)
[2024-06-22] MEDS ORDERED: LORazepam 1 MG TAB PO PRN (15:05)
[2024-06-22] MEDS ORDERED: ATROPINE SULFATE 1% OPHTH SOLN 2ML BTL SL PRN (15:05)
[2024-06-22] MEDS: MORPHINE 10MG/0.5ML ORAL CONCENTRATE SOLUTION U/D SL SCH (17:00)
[2024-06-23] MEDS: MORPHINE 10MG/0.5ML ORAL CONCENTRATE SOLUTION U/D SL PRN (21:28)
[2024-06-28] MEDS ORDERED: MORP1SOL5 PO (08:34)
[2024-06-28] MEDS ORDERED: SENN1TAB85 PO (08:34)
[2024-06-28] MEDS ORDERED: HYOS125TA PO (08:34)
[2024-06-28] MEDS ORDERED: ATIV1TAB10 PO (08:34)
[2024-06-28] MEDS ORDERED: MELO7.5T35 PO (08:34)
[2024-06-28] MEDS ORDERED: ATRO2DRO4 SL (08:37)
== END 2024-06-28 09:00 | disposition hospice, inpatient (51) ==
LOC: EDBD 11:23 → M ED 11:23 → M ED INP 06-22 11:24 → M MS5PR 06-22 15:55
PROVIDERS: ADMIT Student in an Organized Health Care Education/Training Program; ATTEND Internal Medicine Nephrology
DX: S42.192A Fracture of other part of scapula, left shoulder, initial encounter for closed fracture (principal); W18.30XA Fall on same level, unspecified, initial encounter; Y92.003 Bedroom of unspecified non-institutional (private) residence as the place of occurrence of the external cause; C79.51 Secondary malignant neoplasm of bone; C78.7 Secondary malignant neoplasm of liver and intrahepatic bile duct; M16.11 Unilateral primary osteoarthritis, right hip; M84.411D Pathological fracture, right shoulder, subsequent encounter for fracture with routine healing; Z87.81 Personal history of (healed) traumatic fracture; G93.41 Metabolic encephalopathy; M54.50 Low back pain, unspecified; M81.0 Age-related osteoporosis without current pathological fracture; Z74.2 Need for assistance at home and no other household member able to render care; K59.00 Constipation, unspecified; Z87.311 Personal history of (healed) other pathological fracture; D75.9 Disease of blood and blood-forming organs, unspecified; Z91.81 History of falling; R63.4 Abnormal weight loss; R53.1 Weakness; Z85.3 Personal history of malignant neoplasm of breast; Z90.13 Acquired absence of bilateral breasts and nipples; Z92.3 Personal history of irradiation; R11.0 Nausea; R41.0 Disorientation, unspecified; R47.81 Slurred speech; R63.0 Anorexia; Z80.1 Family history of malignant neoplasm of trachea, bronchus and lung; Z79.899 Other long term (current) drug therapy; Z79.891 Long term (current) use of opiate analgesic; Z51.5 Encounter for palliative care
CPT/HCPCS: 73030; 73060; 73502; 80048; 80053; 83735; 84439; 84443; 85025; 85027; 96372; 97116; 97161; 97165; 97530; 97535; 99285; G0378; J1650